=== PATIENT | male | born 1950 | race African-American/Black ===

== ENCOUNTER → 2016-10-01 | Outpatient (CLI) | payer MEDICARE, OTHER ==
[2016-10-01 10:24] LABS: ALBUMIN 3.7 GM/DL (3.2-5.2); ANION GAP 5 MEQ/L (8-16); BLOOD UREA NITROGEN 15 MG/DL (7-18); CALCIUM LEVEL 8.4 MG/DL (8.8-10.2); CARBON DIOXIDE LEVEL 30 MEQ/L (21-32); CHLORIDE LEVEL 106 MEQ/L (98-107); CHOLESTEROL LEVEL 182 MG/DL (<200); CREATININE FOR GFR 1.38 MG/DL (0.70-1.30); GLOMERULAR FILTRATION RATE > 60.0 (>49); GLUCOSE, FASTING 105 MG/DL (80-110); MAGNESIUM LEVEL 2.2 MG/DL (1.8-2.4); PHOSPHORUS LEVEL 3.2 MG/DL (2.5-4.9); SODIUM LEVEL 141 MEQ/L (136-145); TRIGLYCERIDES LEVEL 69 MG/DL (<150)
== END ==
LOC: M LAB 09:01
PROVIDERS: ATTEND Internal Medicine
DX: N18.3 Chronic kidney disease, stage 3 (moderate) (principal); E78.5 Hyperlipidemia, unspecified; I12.9 Hypertensive chronic kidney disease with stage 1 through stage 4 chronic kidney disease, or unspecified chronic kidney disease

== ENCOUNTER → 2016-10-13 | Outpatient (REF) | payer MEDICARE ==
[2016-10-13 16:26] LABS: MEAN CORPUSCULAR HEMOGLOBIN 31.6 pg (27.0-33.0); MEAN CORPUSCULAR HGB CONC 32.5 g/dl (32.0-36.5); MEAN CORPUSCULAR VOLUME 97.2 fl (80.0-96.0); RED CELL DISTRIBUTION WIDTH 11.6 % (11.5-14.5); WHITE BLOOD COUNT 5.8 K/mm3 (4.0-10.0)
[2016-10-13 16:30] LABS: ALBUMIN/GLOBULIN RATIO 1.21 (1.00-1.93); ALKALINE PHOSPHATASE 80 U/L (45-117); ALT/SGPT 25 U/L (12-78); ANION GAP 7 MEQ/L (8-16); AST/SGOT 20 U/L (15-37); BILIRUBIN,TOTAL 0.4 MG/DL (0.2-1.0); BLOOD UREA NITROGEN 17 MG/DL (7-18); CALCIUM LEVEL 8.7 MG/DL (8.8-10.2); CARBON DIOXIDE LEVEL 29 MEQ/L (21-32); CHLORIDE LEVEL 104 MEQ/L (98-107); CREATININE FOR GFR 1.46 MG/DL (0.70-1.30); GLOMERULAR FILTRATION RATE > 60.0 (>49); GLUCOSE, FASTING 84 MG/DL (80-110); POTASSIUM SERUM 4.5 MEQ/L (3.5-5.1); SODIUM LEVEL 140 MEQ/L (136-145); TOTAL PROTEIN 7.3 GM/DL (6.4-8.2)
== END ==
LOC: M SFHCPLAZ 14:19
PROVIDERS: ATTEND Internal Medicine
DX: R31.29 Other microscopic hematuria (principal); I10 Essential (primary) hypertension
CPT/HCPCS: 36415; 80053; 81001; 85027; 90732; G0009

== ENCOUNTER → 2016-10-25 | Outpatient (CLI) | payer MEDICARE ==
[~2016-10-25] MED LIST: AMLO5TAB2 PO; CHLO25TA PO
[2016-10-25 13:40] LABS: ANION GAP 6 MEQ/L (8-16); BLOOD UREA NITROGEN 18 MG/DL (7-18); CALCIUM LEVEL 8.8 MG/DL (8.8-10.2); CARBON DIOXIDE LEVEL 31 MEQ/L (21-32); CHLORIDE LEVEL 102 MEQ/L (98-107); CREATININE FOR GFR 1.37 MG/DL (0.70-1.30); GLOMERULAR FILTRATION RATE > 60.0 (>49); GLUCOSE, FASTING 111 MG/DL (80-110); POTASSIUM SERUM 4.1 MEQ/L (3.5-5.1); SODIUM LEVEL 139 MEQ/L (136-145)
== END ==
LOC: M SMT 11:41
PROVIDERS: ATTEND Nurse Practitioner Women's Health
DX: R31.29 Other microscopic hematuria (principal); Z12.5 Encounter for screening for malignant neoplasm of prostate
CPT/HCPCS: 36415; 80048; 81001; 87086; 88108; G0103; G0463

== ENCOUNTER → 2016-11-11 | Outpatient (CLI) | payer MEDICARE ==
[~2016-11-11] MED LIST changes: +ISOVUE-370 76% 100ML VIAL (Q9967) As Ordered ONE
--- NOTE | 2016-11-12 09:00 | REP ---
Clinical: Microscopic hematuria. Technique: Axial precontrast, contrast enhanced, and delayed images of the abdomen and pelvis using 100 ml Isovue 370 intravenous contrast material with coronal and sagittal re-formations. Findings: Evaluation of the urinary tract system demonstrates normal kidneys, ureters, and bladder in all phases of enhancement. Specifically, there is no perinephric stranding, hydroureteronephrosis, intrarenal or obstructing ureteral calculi a no renal cystic or mass lesions are identified. Delayed images demonstrate normal symmetric appearance to the ureters and bladder. Liver, spleen, pancreas, and bilateral adrenal glands are normal. The patient is status post cholecystectomy. The enteric system is unremarkable. Pelvis demonstrates normal bladder and mildly enlarged prostate gland measuring 4.1 cm transverse diameter. No pelvic fluid or ascites. No adenopathy. No free air. Atherosclerotic changes of the aorta and branch vessels noted without aneurysm. Musculoskeletal structures are intact without focal osseous abnormality. Impression: 1. Normal urinary tract system. 2. Mildly prominent prostate gland. 3. No further acute intra-abdominal or pelvic pathology appreciated. Signed by Ralph Henry MD 11/12/2016 08:52 A
== END ==
LOC: M RAD 10:32
PROVIDERS: ATTEND Nurse Practitioner Women's Health
DX: R31.29 Other microscopic hematuria (principal)
CPT/HCPCS: 74178; Q9967

== ENCOUNTER → 2016-11-16 | Outpatient (CLI) | payer MEDICARE ==
[~2016-11-16] MED LIST changes: +AMLO10TA PO; +CIPR500T3 PO; -ISOVUE-370 76% 100ML VIAL (Q9967) As Ordered ONE; +TYLE650T35 PO
--- NOTE | 2016-11-17 05:16 | REP ---
Clinical: Preoperative assessment . Comparison: None . Technique: PA and lateral. Findings: The mediastinum and cardiac silhouette are normal. Airway is patent and midline. The lung hamlin are clear and without acute consolidation, effusion, or pneumothorax. The skeletal structures are intact and normal. Impression: 1. No acute cardiopulmonary process. Signed by Ralph Henry MD 11/17/2016 05:08 A
== END ==
LOC: M RAD 16:23
PROVIDERS: ATTEND Family Medicine
DX: Z01.818 Encounter for other preprocedural examination (principal); N32.89 Other specified disorders of bladder; F17.200 Nicotine dependence, unspecified, uncomplicated; Z79.899 Other long term (current) drug therapy
CPT/HCPCS: 36415; 71020; 80048; 85025; 87086; G0463

== ENCOUNTER → 2016-11-16 | Outpatient (REF) | payer MEDICARE ==
[~2016-11-16] MED LIST changes: -AMLO10TA PO
[2016-11-16 18:13] LABS: BASO % 0.6 % (0.0-1.0); EOS # 0.1 K/mm3 (0.0-0.50); EOS % 1.2 % (0.0-3.0); LARGE UNSTAINED CELL # 0.1 K/mm3 (0.0-0.4); LARGE UNSTAINED CELL % 1.9 % (0.0-4.0); LYMPH # 1.9 K/mm3 (1.5-4.5); LYMPH % 32.4 % (24.0-44.0); MEAN CORPUSCULAR HEMOGLOBIN 31.9 pg (27.0-33.0); MEAN CORPUSCULAR HGB CONC 32.8 g/dl (32.0-36.5); MEAN CORPUSCULAR VOLUME 97.2 fl (80.0-96.0); MONO # 0.4 K/mm3 (0.0-0.8); MONO % 6.9 % (0.0-5.0); NEUTROPHILS # 3.4 K/mm3 (1.8-7.7); PLATELET COUNT, AUTOMATED 178 k/mm3 (150-450); RED CELL DISTRIBUTION WIDTH 11.8 % (11.5-14.5)
[2016-11-16 19:11] LABS: ANION GAP 4 MEQ/L (8-16); BLOOD UREA NITROGEN 15 MG/DL (7-18); CALCIUM LEVEL 8.4 MG/DL (8.8-10.2); CARBON DIOXIDE LEVEL 30 MEQ/L (21-32); CHLORIDE LEVEL 107 MEQ/L (98-107); CREATININE FOR GFR 1.21 MG/DL (0.70-1.30); GLOMERULAR FILTRATION RATE > 60.0 (>49); GLUCOSE, FASTING 62 MG/DL (80-110); POTASSIUM SERUM 3.9 MEQ/L (3.5-5.1); SODIUM LEVEL 141 MEQ/L (136-145)
== END ==
LOC: M SFHCPLAZ 15:08
PROVIDERS: ATTEND Family Medicine
DX: Z01.818 Encounter for other preprocedural examination (principal); N32.9 Bladder disorder, unspecified

== ENCOUNTER → 2016-11-24 | Day surgery (SDC) | payer MEDICARE ==
[~2016-11-24] VITALS: Ht 175.3 cm; Wt 71.2 kg
[~2016-11-24] MED LIST changes: +ACETAMINOPHEN TAB 650MG DOSE (2X325MG) PO SCH; +AMLO10TA PO; +CIPROFLOXACIN 500 MG TAB PO SCH; +GLYCOPYRROLATE INJ 0.2 MG/ML 2 ML VIAL As Ordered ONE; +LIDOCAINE 1% MDV 20ML VIAL SQ ONE; +LIDOCAINE 2% INJ 100 MG/5 ML SDV (FOR ANES.) As Ordered ONE; +LR 1,000 ML IV ONE; +LR 1,000 ML IV SCH; +MIDAZOLAM INJ 2 MG/2 ML VIAL (J2250) As Ordered ONE; +NEOSTIGMINE 1MG/ML 5 ML SYRINGE (J2710) As Ordered ONE; +ONDANSETRON 4MG/2ML VIAL (J2405) As Ordered ONE; +ONDANSETRON 4MG/2ML VIAL (J2405) IV PRN; +PROPOFOL 200 MG/20 ML VIAL As Ordered ONE; +dexameTHASONE 4 MG/ML 1ML VIAL (J1100) As Ordered ONE; +fentaNYL 100 MCG/2 ML INJECTION (J3010) As Ordered ONE
[2016-11-24 07:51] LABS: INR 0.95
[2016-11-24] MEDS: fentaNYL 100 MCG/2 ML INJECTION (J3010) IV PRN ×4 (10:35→10:50)
[2016-11-24] MEDS: MORPHINE 2 MG/ML 1ML SYRINGE IV PRN ×4 (10:55→11:10)
[2016-11-24 11:50] VITALS: BP 165/93
--- NOTE | 2016-11-25 21:15 | RO ---
DATE OF PROCEDURE: 11/24/2016 PREOPERATIVE DIAGNOSIS: Right lateral wall bladder tumor. POSTOPERATIVE DIAGNOSIS: Bladder tumor. FINDINGS: 2.5 cm flat lateral wall bladder tumor. SURGERY PERFORMED: Cystoscopy, transurethral resection of bladder tumor, bipolar transurethral resection of bladder tumor (TURBT). Examination under anesthesia. SURGEON: Dagoberto Farooq MD HISTORY FACULTY MEMBER: None. ANESTHESIA: General. COMPLICATIONS: None. ESTIMATED BLOOD LOSS: N/A. HISTORY OF PRESENT ILLNESS: 66-year-old male patient that had a flexible cystoscopy in the clinic that showed a 2.5 cm flat lesion erythematous in the right lateral wall. For this reason the patient has consented for cystoscopy, TURBT, plus exam under anesthesia. PROCEDURE DESCRIPTION: With the patient under general anesthesia in supine modified low lithotomy position, after prepping and draping the area of concern, which included the entire genitalia and abdomen, we started by introducing a cystoscope, #21-Kinyarwanda in diameter under videoscopic guidance with a 30 degrees lens. The fossa navicularis, penile urethra, bulbar urethra and membranous urethra were totally normal. The prostate had lateral lobes touching, no middle lobes. Both ureteral orifices were seen. The bladder had no tumors in the dome or in the left lateral wall. On the right lateral wall near the ureteral orifice, there was a flat lesion about 2.5 cm in diameter with mild papillary component. We grabbed the resectoscope, under normal saline, bipolar resection. We resected this area and with a Ellik elevator we extracted the chips of tumor and sent it for permanent pathology analysis. We then fulgurated the base and extracted the resectoscope and placed a #20-Kinyarwanda Arreaga catheter and inflated it up to 10 mL. PLAN: The patient will be discharged home with a Arreaga catheter set to gravity. He will come back in two days for removal of Arreaga catheter and voiding trial.
== END | disposition home or self-care (01) ==
LOC: M SDC 07:20
PROVIDERS: ATTEND Urology
DX: N30.90 Cystitis, unspecified without hematuria (principal); I10 Essential (primary) hypertension; F17.210 Nicotine dependence, cigarettes, uncomplicated; Z79.899 Other long term (current) drug therapy
CPT/HCPCS: 36415; 52235; 85610; 86850; 86900; 86901; 88305; J0690; J1100; J2250; J2405; J2710; J3010

== ENCOUNTER 2016-11-27 14:29 | Emergency (ER) | payer MEDICARE, MEDICAID ==
[~2016-11-27] VITALS: Ht 172.7 cm; Wt 69.6 kg
[~2016-11-27 14:29] MED LIST changes: -ACETAMINOPHEN TAB 650MG DOSE (2X325MG) PO SCH; -AMLO10TA PO; -CIPROFLOXACIN 500 MG TAB PO SCH; -GLYCOPYRROLATE INJ 0.2 MG/ML 2 ML VIAL As Ordered ONE; -LIDOCAINE 1% MDV 20ML VIAL SQ ONE; -LIDOCAINE 2% INJ 100 MG/5 ML SDV (FOR ANES.) As Ordered ONE; -LR 1,000 ML IV ONE; -LR 1,000 ML IV SCH; -MIDAZOLAM INJ 2 MG/2 ML VIAL (J2250) As Ordered ONE; -NEOSTIGMINE 1MG/ML 5 ML SYRINGE (J2710) As Ordered ONE; -ONDANSETRON 4MG/2ML VIAL (J2405) As Ordered ONE; -ONDANSETRON 4MG/2ML VIAL (J2405) IV PRN; -PROPOFOL 200 MG/20 ML VIAL As Ordered ONE; -dexameTHASONE 4 MG/ML 1ML VIAL (J1100) As Ordered ONE; -fentaNYL 100 MCG/2 ML INJECTION (J3010) As Ordered ONE
[2016-11-27] MEDS ORDERED: AMLO10TA PO (14:47)
[2016-11-27 16:28] LABS: BASO % 0.7 % (0.0-1.0); EOS # 0.1 K/mm3 (0.0-0.50); EOS % 1.8 % (0.0-3.0); LARGE UNSTAINED CELL # 0.1 K/mm3 (0.0-0.4); LARGE UNSTAINED CELL % 1.3 % (0.0-4.0); LYMPH # 1.9 K/mm3 (1.5-4.5); LYMPH % 26.3 % (24.0-44.0); MEAN CORPUSCULAR HEMOGLOBIN 32.2 pg (27.0-33.0); MEAN CORPUSCULAR HGB CONC 33.4 g/dl (32.0-36.5); MEAN CORPUSCULAR VOLUME 96.3 fl (80.0-96.0); MONO # 0.5 K/mm3 (0.0-0.8); MONO % 7.2 % (0.0-5.0); NEUTROPHILS # 4.4 K/mm3 (1.8-7.7); NEUTROPHILS % 62.7 % (36.0-66.0); PLATELET COUNT, AUTOMATED 158 k/mm3 (150-450); RED CELL DISTRIBUTION WIDTH 12.1 % (11.5-14.5)
[2016-11-27] MEDS ORDERED: MORPHINE 4 MG/ML 1ML SYRINGE IV ONE (16:30)
[2016-11-27] MEDS ORDERED: ONDANSETRON 4MG/2ML VIAL (J2405) IV ONE (16:30)
[2016-11-27] MEDS ORDERED: NS 500 ML IV ONE (16:30)
[2016-11-27 16:36] LABS: INR 0.97
[2016-11-27 16:49] LABS: ALBUMIN 3.9 GM/DL (3.2-5.2); ALKALINE PHOSPHATASE 78 U/L (45-117); ALT/SGPT 57 U/L (12-78); ANION GAP 5 MEQ/L (8-16); AST/SGOT 45 U/L (15-37); BILIRUBIN,DIRECT 0.2 MG/DL (0.0-0.2); BILIRUBIN,TOTAL 0.5 MG/DL (0.2-1.0); BLOOD UREA NITROGEN 14 MG/DL (7-18); CALCIUM LEVEL 8.9 MG/DL (8.8-10.2); CARBON DIOXIDE LEVEL 30 MEQ/L (21-32); CHLORIDE LEVEL 103 MEQ/L (98-107); CREATININE FOR GFR 1.48 MG/DL (0.70-1.30); GLOMERULAR FILTRATION RATE > 60.0 (>49); GLUCOSE, FASTING 74 MG/DL (80-110); POTASSIUM SERUM 3.9 MEQ/L (3.5-5.1); SODIUM LEVEL 138 MEQ/L (136-145); TOTAL PROTEIN 6.9 GM/DL (6.4-8.2)
[2016-11-27 18:00] VITALS: BP 145/85
--- NOTE | 2016-11-28 08:20 | REP ---
CT study abdomen and pelvis without contrast: History: Right flank pain. Bladder mass resected November 24, 2016. Comparison CT study November 11, 2016. CT findings: Digital shovel logger view shows a normal bowel gas pattern. The lung bases remain clear. There is no evidence of pleural effusion. The liver and spleen are normal in size, homogeneous in texture. There are clips in the gallbladder fossa as before. No adrenal lesion is seen. There is no evidence of hydronephrosis on either side. No renal calculus or mass is seen. There are scattered calcifications in the pancreas as before, question chronic pancreatitis. Vascular calcification is noted. Normal caliber aorta is seen. Normal appendix is noted. Arreaga catheter seen the urinary bladder. There is mild diverticulosis of the sigmoid colon. No evidence of free intraperitoneal air or abnormal fluid collection seen. Impression: Arreaga catheter in place. Mild left colonic diverticulosis. Postcholecystectomy. No acute abdominal or pelvic abnormality. Signed by Kameron Giron MD 11/28/2016 09:00 A
== END 2016-11-27 18:03 | disposition home or self-care (01) ==
LOC: M ED 15:44
DX: R31.9 Hematuria, unspecified (principal); Z87.448 Personal history of other diseases of urinary system; I10 Essential (primary) hypertension; F17.200 Nicotine dependence, unspecified, uncomplicated; Z96.0 Presence of urogenital implants; K57.30 Diverticulosis of large intestine without perforation or abscess without bleeding; Z79.899 Other long term (current) drug therapy
CPT/HCPCS: 36415; 74176; 80048; 80076; 81001; 83690; 85025; 85610; 85730; 86850; 86900; 86901; 87086; 96374; 96375; 99283; J2405

== ENCOUNTER → 2016-12-02 | Outpatient (REF) | payer MEDICARE ==
[~2016-12-02] MED LIST changes: +AMLO10TA PO
== END ==
LOC: M LABSMT 10:27
PROVIDERS: ATTEND Nurse Practitioner Women's Health
DX: N30.80 Other cystitis without hematuria (principal)

== ENCOUNTER → 2017-07-13 | Outpatient (REF) | payer MEDICARE ==
[2017-07-13 18:48] LABS: APPEARANCE, URINE CLEAR (CLEAR); BACTERIA, URINE AUTO NEGATIVE (NEGATIVE); BILIRUBIN, URINE AUTO NEGATIVE (NEGATIVE); BLOOD, URINE BLOOD 1+ (NEGATIVE); COLOR, URINE YELLOW (YELLOW); GLUCOSE, URINE (UA) AUTO NEGATIVE (NEGATIVE); KETONE, URINE AUTO NEGATIVE (NEGATIVE); LEUKOCYTE ESTERASE, URINE AUTO NEGATIVE (NEGATIVE); MUCUS, URINE SMALL (NEGATIVE); NITRITE, URINE AUTO NEGATIVE (NEGATIVE); PROTEIN, URINE AUTO NEGATIVE (NEGATIVE); RBC, URINE AUTO 4 /HPF (0-3); SPECIFIC GRAVITY URINE AUTO 1.011 (1.002-1.035); SQUAMOUS EPITHELIAL CELL UR AU 0 /HPF (0-6); UROBILINOGEN, URINE AUTO 0.2 mg/dL (0.0-2.0); WBC, URINE AUTO 1 /HPF (0-3)
== END ==
LOC: M SMT 17:07
DX: N30.80 Other cystitis without hematuria (principal)

== ENCOUNTER → 2017-07-13 | Outpatient (CLI) | payer MEDICARE ==
[2017-07-13 20:43] LABS: PSA SCREENING 0.56 NG/ML (< 4.0)
== END ==
LOC: M SMT 14:36
DX: N30.80 Other cystitis without hematuria (principal); Z12.5 Encounter for screening for malignant neoplasm of prostate
CPT/HCPCS: G0103

== ENCOUNTER → 2018-01-02 | Outpatient (REF) | payer MEDICARE, MEDICAID | LOC: M SMT 17:03 | DX: N30.80 Other cystitis without hematuria (principal) | CPT/HCPCS: 88108 ==

== ENCOUNTER → 2018-01-13 | Outpatient (CLI) | payer MEDICARE, MEDICAID ==
[2018-01-13 12:56] LABS: ERYTHROCYTE SEDIMENTATION RATE 16 mm/hr (0-20)
[2018-01-13 13:10] LABS: VITAMIN B12 LEVEL 535 PG/ML (247-911)
[2018-01-13 13:11] LABS: FOLATE 13.2 NG/ML (>5.4)
[2018-01-13 13:19] LABS: FREE THYROXINE INDEX 3.1 % (1.4-3.8); RHEUMATOID FACTOR QUANT < 10.0 IU/ML (<15.0); T UPTAKE 36 % (33-40); THYROXINE (T4) 8.5 UG/DL (4.5-12.0); TOTAL PROTEIN 7.5 GM/DL (6.4-8.2)
[2018-01-13 13:32] LABS: ESTIMATED AVERAGE GLUCOSE 82 MG/DL (60-110); HEMOGLOBIN A1c 4.5 %
[2018-01-14 14:10] LABS: ANTINUCLEAR ANTIBODIES DIRECT Negative (Negative)
[2018-01-17 00:07] LABS: VITAMIN E(ALPHA TOCOPHEROL) 9.4 mg/L (9.0-29.0); VITAMIN E(GAMMA TOCOPHEROL) 0.7 mg/L (0.5-4.9)
== END ==
LOC: M LAB 11:20
DX: E07.9 Disorder of thyroid, unspecified (principal); E11.9 Type 2 diabetes mellitus without complications

== ENCOUNTER → 2018-01-13 | Outpatient (CLI) | payer MEDICARE, MEDICAID | LOC: M RAD 11:24 | DX: M50.321 Other cervical disc degeneration at C4-C5 level (principal); M50.322 Other cervical disc degeneration at C5-C6 level; M25.78 Osteophyte, vertebrae; M47.892 Other spondylosis, cervical region; M47.896 Other spondylosis, lumbar region; E07.9 Disorder of thyroid, unspecified; E11.9 Type 2 diabetes mellitus without complications | CPT/HCPCS: 84439 ==

== ENCOUNTER → 2018-02-20 | Outpatient (CLI) | payer MEDICARE, MEDICAID | LOC: M RAD 07:50 | DX: B18.2 Chronic viral hepatitis C (principal) | CPT/HCPCS: 76705 ==

== ENCOUNTER → 2018-05-01 | Outpatient (CLI) | payer MEDICARE, MEDICAID ==
[2018-05-01 13:51] LABS: BASO % 0.7 % (0.0-1.0); EOS % 0.7 % (0.0-3.0); HEMOGLOBIN 13.6 g/dl (13.5-17.5); IMMATURE GRANULOCYTE % 0.2 % (0-3.0); LYMPH # 1.6 10^3/uL (1.5-4.5); LYMPH % 28.8 % (24.0-44.0); MEAN CORPUSCULAR HEMOGLOBIN 31.5 pg (27.0-33.0); MEAN CORPUSCULAR HGB CONC 32.4 g/dl (32.0-36.5); MEAN CORPUSCULAR VOLUME 97.2 fl (80.0-96.0); MONO # 0.4 10^3/uL (0.0-0.8); MONO % 7.5 % (0.0-5.0); NEUTROPHILS # 3.5 10^3/uL (1.8-7.7); NEUTROPHILS % 62.1 % (36.0-66.0); PLATELET COUNT, AUTOMATED 184 10^3/uL (150-450); RED BLOOD COUNT 4.32 10^6/uL (4.30-6.10); RED CELL DISTRIBUTION WIDTH 11.9 % (11.5-14.5); WHITE BLOOD COUNT 5.6 10^3/uL (4.0-10.0)
[2018-05-01 14:12] LABS: ERYTHROCYTE SEDIMENTATION RATE 17 mm/hr (0-20)
[2018-05-01 14:24] LABS: ALBUMIN 3.7 GM/DL (3.2-5.2); ALBUMIN/GLOBULIN RATIO 1.06 (1.00-1.93); ALKALINE PHOSPHATASE 68 U/L (45-117); ALT/SGPT 23 U/L (12-78); ANION GAP 6 MEQ/L (8-16); AST/SGOT 20 U/L (7-37); BILIRUBIN,TOTAL 0.5 MG/DL (0.2-1.0); BLOOD UREA NITROGEN 17 MG/DL (7-18); CALCIUM LEVEL 8.6 MG/DL (8.8-10.2); CARBON DIOXIDE LEVEL 28 MEQ/L (21-32); CHLORIDE LEVEL 107 MEQ/L (98-107); CREATININE FOR GFR 1.42 MG/DL (0.70-1.30); FOLATE 12.3 NG/ML; FREE T4 0.83 NG/DL (0.76-1.46); GLOMERULAR FILTRATION RATE > 60.0 (>49); GLUCOSE, FASTING 82 MG/DL (70-100); POTASSIUM SERUM 4.1 MEQ/L (3.5-5.1); RHEUMATOID FACTOR QUANT < 10.0 IU/ML (<15.0); SODIUM LEVEL 141 MEQ/L (136-145); THYROID STIMULATING HORMONE 0.498 uIU/ML (0.358-3.740); TOTAL PROTEIN 7.2 GM/DL (6.4-8.2); VITAMIN B12 LEVEL 583 PG/ML
[2018-05-01 14:39] LABS: ESTIMATED AVERAGE GLUCOSE 91 MG/DL (60-110); HEMOGLOBIN A1c 4.8 %
[2018-05-02 13:40] LABS: ALBUMIN % 58.9 % (55.8-66.1); ALPHA-2-GLOBULINS % 12.4 % (7.1-11.8)
[2018-05-02 13:41] LABS: ALBUMIN 4.24 GM/DL (3.29-5.55); ALPHA-1-GLOBULINS 0.29 GM/DL (0.17-0.41); ALPHA-2-GLOBULINS 0.89 GM/DL (0.42-0.99); BETA-1-GLOBULINS 0.42 GM/DL (0.28-0.60); BETA-1-GLOBULINS % 5.8 % (4.7-7.2); BETA-2-GLOBULINS % 4.1 % (3.2-6.5); GAMMA GLOBULIN % 14.8 % (11.1-18.8); GAMMA GLOBULINS 1.07 GM/DL (0.65-1.58)
[2018-05-05 14:10] LABS: ANTINUCLEAR ANTIBODIES DIRECT Negative (Negative); Methylmalonic Acid 129 nmol/L (0-378); VITAMIN B1 LEVEL WHOLE BLOOD 72.3 nmol/L (66.5-200.0); VITAMIN B6,PYRIDOXAL PHOSPHATE 8.8 ug/L (5.3-46.7); VITAMIN E(ALPHA TOCOPHEROL) 9.9 mg/L (9.0-29.0)
== END ==
LOC: M LAB 12:36
DX: E11.9 Type 2 diabetes mellitus without complications (principal); R20.2 Paresthesia of skin; E07.9 Disorder of thyroid, unspecified; G62.9 Polyneuropathy, unspecified
CPT/HCPCS: 82746

== ENCOUNTER → 2018-07-07 | Outpatient (CLI) | payer MEDICARE, MEDICAID ==
[~2018-07-07] MED LIST changes: -AMLO5TAB2 PO; +AMLO5TAB6 PO
[2018-07-07 12:29] LABS: HEMOGLOBIN 12.6 g/dl (13.5-17.5); MEAN CORPUSCULAR HEMOGLOBIN 31.7 pg (27.0-33.0); MEAN CORPUSCULAR HGB CONC 33.2 g/dl (32.0-36.5); MEAN CORPUSCULAR VOLUME 95.7 fl (80.0-96.0); PLATELET COUNT, AUTOMATED 184 10^3/uL (150-450); RED BLOOD COUNT 3.97 10^6/uL (4.30-6.10); WHITE BLOOD COUNT 6.6 10^3/uL (4.0-10.0)
[2018-07-07 12:46] LABS: BLOOD UREA NITROGEN 18 MG/DL (7-18); CALCIUM LEVEL 8.5 MG/DL (8.8-10.2); CARBON DIOXIDE LEVEL 28 MEQ/L (21-32); CHLORIDE LEVEL 104 MEQ/L (98-107); CREATININE FOR GFR 1.39 MG/DL (0.70-1.30); GLOMERULAR FILTRATION RATE > 60.0 (>49); GLUCOSE, FASTING 79 MG/DL (70-100); POTASSIUM SERUM 3.4 MEQ/L (3.5-5.1); SODIUM LEVEL 140 MEQ/L (136-145)
== END ==
LOC: M LAB 11:04
PROVIDERS: ATTEND Student in an Organized Health Care Education/Training Program
DX: Z01.818 Encounter for other preprocedural examination (principal)

== ENCOUNTER 2018-07-19 06:20 | Day surgery (SDC) | payer MEDICARE, MEDICAID ==
[~2018-07-19] VITALS: Ht 175.3 cm; Wt 69.4 kg
[~2018-07-19 06:20] MED LIST changes: +LISI10TA4 PO; +TRAM50TA2 PO
[2018-07-19] MEDS ORDERED: BUPIVACAINE HCL 0.5% 10 ML VIAL As Ordered ONE (07:07)
[2018-07-19] MEDS ORDERED: LIDOCAINE 1% MDV 20ML VIAL As Ordered ONE (07:07)
[2018-07-19] MEDS ORDERED: dexameTHASONE 4 MG/ML 1ML VIAL (J1100) As Ordered ONE (07:07)
[2018-07-19] MEDS ORDERED: ONDANSETRON 4MG/2ML VIAL (J2405) As Ordered ONE (07:09)
[2018-07-19] MEDS ORDERED: PROPOFOL 200 MG/20 ML VIAL As Ordered ONE ×2 (07:09→08:25)
[2018-07-19] MEDS ORDERED: LIDOCAINE 2% INJ 100 MG/5 ML SDV (FOR ANES.) As Ordered ONE (07:09)
[2018-07-19] MEDS ORDERED: fentaNYL 100 MCG/2 ML INJECTION (J3010) As Ordered ONE (07:10)
[2018-07-19] MEDS ORDERED: MIDAZOLAM INJ 2 MG/2 ML VIAL (J2250) As Ordered ONE (07:10)
[2018-07-19] MEDS ORDERED: ePHEDrine SULFATE 25 MG/5 ML(5MG/ML) SYRINGE As Ordered ONE (08:14)
[2018-07-19] MEDS ORDERED: HYDR-3713 PO (08:58)
[2018-07-19 09:30] VITALS: BP 131/83
[2018-07-19] MEDS ORDERED: NORCO, ANEXSIA 5/325MG TABLET (HYDROcodone/ACETAMINOPHEN) PO PRN (09:30)
--- NOTE | 2018-07-20 08:16 | RO ---
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 PROCEDURE: Left foot Damion osteotomy and second hammer toe correction. SURGEON: Alfie Woo DPM PRECISION AGRICULTURE TECHNICIAN: None. ANESTHESIA: Monitored anesthesia care with preoperative injection of 3 mL of 1:1 mixture of 1% lidocaine plain and 0.5% Marcaine plain. ESTIMATED BLOOD LOSS: Minimal. MATERIALS: Arthrex DynaNite staple, #3-0 and #4-0 Vicryl, #4-0 Nylon. INJECTABLES: None. COMPLICATIONS: None. CONDITION: Stable. Isaac Guadalupe is a 68-year-old male who presents to [facility] with complaints of painful left hallux and second toe. He has had previous bunionectomy at this site. He has residual valgus deformity creating a painful corn on his second toe. He has failed conservative treatment and presents today for surgical correction. The patient's site and side were identified and marked in the preoperative holding area. Consent was reviewed and obtained. All risks, complications and alternatives to the procedure were explained to the patient in detail. All questions were answered. DESCRIPTION OF PROCEDURE: The patient was brought to the operating room and placed on the operating room table in supine position. Monitored anesthesia care was delivered by the anesthesia team. Preoperative injection of 20 mL of 1:1 mixture of 1% lidocaine plain and 0.5% Marcaine plain were injected to the left foot. The left foot was prepped and draped in a normal sterile fashion. Tourniquet was applied to the left ankle and inflated to 225 mmHg. Patient received Ancef preoperatively. A dorsal medial incision was made over the left hallux and carried through with a #15 blade. Dissection was carried until the proximal phalanx was identified. Care was taken to retract the extensor tendon. Following this, a wedge of bone was removed from the base of the proximal phalanx effectively placing the hallux in a more medial position. This was fixated with an Arthrex DynaNite staple. Site was irrigated with normal saline. A lateral release was performed at the first metatarsal phalangeal joint capsule. The medial capsule was tightened with #3-0 Vicryl, subcutaneous closure performed with #4-0 Vicryl and skin closure with #4-0 Nylon. Next attention was paid to the second toe. Dorsal incision drawn over the proximal interphalangeal joint and carried through with a #15 blade. Dissection was carried to the extensor tendon was identified. This was transected at the proximal interphalangeal joint level exposing the proximal phalanx head. The collateral ligaments were released and the proximal phalanx head was resected with sagittal saw. The site was irrigated with normal saline. The extensor tendon was repaired with #3-0 Vicryl and the skin closure with #4-0 Nylon. The callus on the hallux and second toe were debrided. Sterile dressings were applied. Tourniquet was deflated. The patient was brought to post anesthesia care unit (PACU) with vital signs stable and neurovascular status intact. He will be partial weightbearing as tolerated. He will followup in the office in two days.
== END 2018-07-19 10:50 | disposition home or self-care (01) ==
LOC: M SDC 06:20
PROVIDERS: ATTEND Podiatrist Foot & Ankle Surgery
DX: M20.12 Hallux valgus (acquired), left foot (principal); M20.42 Other hammer toe(s) (acquired), left foot; I10 Essential (primary) hypertension; M54.5 Low back pain; L84 Corns and callosities; R29.898 Other symptoms and signs involving the musculoskeletal system; D41.4 Neoplasm of uncertain behavior of bladder; Z79.899 Other long term (current) drug therapy; Z72.0 Tobacco use; Z86.19 Personal history of other infectious and parasitic diseases
CPT/HCPCS: 28285; 28298; 88300; 97116; C1713; J0690; J2250; J2405; J3010

== ENCOUNTER → 2019-09-13 | Outpatient (CLI) | payer MEDICARE, MEDICAID ==
[~2019-09-13] MED LIST changes: +HYDR-3713 PO
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
== END ==
LOC: M PAIN 10:30
PROVIDERS: ATTEND Family Medicine
DX: M50.10 Cervical disc disorder with radiculopathy, unspecified cervical region (principal); I10 Essential (primary) hypertension; Z79.891 Long term (current) use of opiate analgesic; Z79.899 Other long term (current) drug therapy

== ENCOUNTER → 2019-10-15 | Outpatient (CLI) | payer MEDICARE, MEDICAID ==
[~2019-10-15] MED LIST changes: +AUGM875T28 PO; +BACI500O21 TOP; +NEUR300C PO
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
== END ==
LOC: M PAIN 14:15
PROVIDERS: ATTEND Family Medicine
DX: M50.10 Cervical disc disorder with radiculopathy, unspecified cervical region (principal); G89.29 Other chronic pain; I10 Essential (primary) hypertension; F17.210 Nicotine dependence, cigarettes, uncomplicated; Z79.899 Other long term (current) drug therapy

== ENCOUNTER 2019-10-24 17:44 | Emergency (ER) | payer MEDICARE, MEDICAID ==
[~2019-10-24] VITALS: Ht 175.3 cm; Wt 72.3 kg
[~2019-10-24 17:44] MED LIST changes: -AUGM875T28 PO; -BACI500O21 TOP; -NEUR300C PO
[2019-10-24] MEDS ORDERED: NEUR300C PO (17:52)
[2019-10-24] MEDS ORDERED: AUGMENTIN 875 MG TAB PO ONE (18:30)
[2019-10-24] MEDS ORDERED: AUGM875T28 PO (18:36)
[2019-10-24] MEDS ORDERED: BACI500O21 TOP (18:36)
[2019-10-24 18:59] VITALS: BP 196/99
== END 2019-10-24 19:00 | disposition home or self-care (01) ==
LOC: M ED 17:44
DX: S71.131A Puncture wound without foreign body, right thigh, initial encounter (principal); W54.0XXA Bitten by dog, initial encounter; Y92.410 Unspecified street and highway as the place of occurrence of the external cause; I10 Essential (primary) hypertension; Z79.899 Other long term (current) drug therapy

== ENCOUNTER 2019-10-27 12:36 | Emergency (ER) | payer MEDICARE, MEDICAID, OTHER ==
[~2019-10-27] VITALS: Ht 175.3 cm; Wt 72.3 kg
[~2019-10-27 12:36] MED LIST changes: +AUGM875T28 PO; +BACI500O21 TOP; +NEUR300C PO
[2019-10-27] MEDS ORDERED: RABIES IMMUNE GLOBULIN 1500 INTERNATIONAL UNIT/5ML VIAL (90375) IM ONE (13:00)
[2019-10-27] MEDS ORDERED: RABIES VACCINE HUMAN 2.5 INTERNATIONAL UNITS/ML VIAL (90675) IM ONE (13:00)
[2019-10-27 13:48] VITALS: BP 188/95
== END 2019-10-27 13:50 | disposition home or self-care (01) ==
LOC: M ED 12:36
DX: S71.151A Open bite, right thigh, initial encounter (principal); W54.0XXA Bitten by dog, initial encounter; Y92.89 Other specified places as the place of occurrence of the external cause; I10 Essential (primary) hypertension; F17.210 Nicotine dependence, cigarettes, uncomplicated

== ENCOUNTER 2019-10-30 10:17 | Emergency (ER) | payer MEDICARE, MEDICAID, OTHER ==
[~2019-10-30] VITALS: Ht 175.3 cm; Wt 70.9 kg
[2019-10-30] MEDS ORDERED: RABIES VACCINE HUMAN 2.5 INTERNATIONAL UNITS/ML VIAL (90675) IM ONE (10:45)
[2019-10-30 10:58] VITALS: BP 152/98
== END 2019-10-30 10:59 | disposition home or self-care (01) ==
LOC: M ED 10:17
DX: Z20.3 Contact with and (suspected) exposure to rabies (principal); Z23 Encounter for immunization

== ENCOUNTER 2019-11-03 10:23 | Emergency (ER) | payer MEDICARE, MEDICAID, OTHER ==
[~2019-11-03] VITALS: Ht 175.3 cm; Wt 70.7 kg
[2019-11-03 10:23] VITALS: BP 141/105
[2019-11-03] MEDS ORDERED: RABIES VACCINE HUMAN 2.5 INTERNATIONAL UNITS/ML VIAL (90675) IM ONE (10:45)
== END 2019-11-03 11:00 | disposition home or self-care (01) ==
LOC: M ED 10:23
DX: S71.151A Open bite, right thigh, initial encounter (principal); W54.0XXA Bitten by dog, initial encounter; Y92.89 Other specified places as the place of occurrence of the external cause

== ENCOUNTER 2019-11-10 10:37 | Emergency (ER) | payer MEDICARE, MEDICAID, OTHER ==
[~2019-11-10] VITALS: Ht 175.3 cm; Wt 70.6 kg
[2019-11-10] MEDS ORDERED: RABIES VACCINE HUMAN 2.5 INTERNATIONAL UNITS/ML VIAL (90675) IM ONE (11:15)
[2019-11-10 11:41] VITALS: BP 148/81
== END 2019-11-10 11:44 | disposition home or self-care (01) ==
LOC: M ED 10:37
DX: S71.151D Open bite, right thigh, subsequent encounter (principal); W54.0XXA Bitten by dog, initial encounter; Y92.89 Other specified places as the place of occurrence of the external cause

== ENCOUNTER 2019-12-07 05:56 | Emergency (ER) | payer MEDICARE, MEDICAID ==
[~2019-12-07] VITALS: Ht 175.3 cm; Wt 70.9 kg
--- NOTE | 2019-12-07 07:11 | ECGEPIP ---
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
[2019-12-07 08:05] LABS: BASO % 0.6 % (0.0-1.0); EOS # 0.1 10^3/uL (0.0-0.5); EOS % 1.4 % (0.0-3.0); HEMATOCRIT 36.3 % (42.0-52.0); LYMPH # 1.9 10^3/uL (1.5-5.0); LYMPH % 25.7 % (24.0-44.0); MEAN CORPUSCULAR HEMOGLOBIN 31.7 pg (27.0-33.0); MEAN CORPUSCULAR HGB CONC 33.1 g/dl (32.0-36.5); MONO # 0.7 10^3/uL (0.0-0.8); MONO % 9.2 % (0.0-5.0); NEUTROPHILS # 4.6 10^3/uL (1.5-8.5); NEUTROPHILS % 62.7 % (36.0-66.0); PLATELET COUNT, AUTOMATED 184 10^3/uL (150-450); RED BLOOD COUNT 3.78 10^6/uL (4.30-6.10); WHITE BLOOD COUNT 7.3 10^3/uL (4.0-10.0)
[2019-12-07 08:18] LABS: ALBUMIN 3.4 GM/DL (3.2-5.2); BILIRUBIN,DIRECT 0.2 MG/DL (0.0-0.2); BILIRUBIN,TOTAL 0.5 MG/DL (0.2-1.0); TOTAL PROTEIN 6.8 GM/DL (6.4-8.2)
--- NOTE | 2019-12-07 08:20 | REP ---
KUB: Single view. History: Abdomen pain. Findings: Monitoring electrodes are seen. There are clips in right upper quadrant post cholecystectomy. Bowel gas pattern is unremarkable with air and some stool in a nondistended colon. No larger small bowel dilation is seen. Flank stripes are intact. Psoas margins are partially obscured but appear symmetric. Impression: Unremarkable bowel gas pattern. Right upper quadrant clips. Electronically Signed by Kameron Giron MD 12/07/2019 08:10 A
[2019-12-07] MEDS ORDERED: MORPHINE 4 MG/ML 1ML VIAL/SYRINGE (J2270) IV ONE (09:00)
[2019-12-07] MEDS ORDERED: NS 1,000 ML IV ONE (09:00)
[2019-12-07] MEDS ORDERED: ONDANSETRON 4MG/2ML VIAL IV ONE (09:00)
[2019-12-07] MEDS ORDERED: NORC1TAB7 PO (09:11)
[2019-12-07 10:30] VITALS: BP 179/104
== END 2019-12-07 10:54 | disposition home or self-care (01) ==
LOC: M ED 05:56
DX: K85.90 Acute pancreatitis without necrosis or infection, unspecified (principal); B18.2 Chronic viral hepatitis C; I10 Essential (primary) hypertension; F17.200 Nicotine dependence, unspecified, uncomplicated; Z79.891 Long term (current) use of opiate analgesic; Z79.899 Other long term (current) drug therapy
CPT/HCPCS: 74018; 80047; 80076; 83605; 83690; 84484; 85025; 93005; 93041; 96361; 96374; 99285; J2270; J2405

== ENCOUNTER → 2019-12-18 | Outpatient (CLI) | payer MEDICARE, MEDICAID ==
[~2019-12-18] MED LIST changes: +NORC1TAB7 PO
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
== END ==
LOC: M PAIN 10:30
PROVIDERS: ATTEND Family Medicine
DX: M54.41 Lumbago with sciatica, right side (principal)

== ENCOUNTER → 2020-01-18 | Outpatient (CLI) | payer MEDICARE, MEDICAID ==
[~2020-01-18] MED LIST changes: +ACET650T61 PO; +AMLO1TAB24 PO; -AMLO5TAB6 PO; -TYLE650T35 PO
== END ==
LOC: M PAIN 09:30
PROVIDERS: ATTEND Family Medicine
DX: M50.10 Cervical disc disorder with radiculopathy, unspecified cervical region (principal); M54.41 Lumbago with sciatica, right side

== ENCOUNTER → 2020-03-19 | Outpatient (CLI) | payer MEDICARE, MEDICAID ==
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
== END ==
LOC: M PAIN 11:30
PROVIDERS: ATTEND Family Medicine
DX: M50.10 Cervical disc disorder with radiculopathy, unspecified cervical region (principal); I12.9 Hypertensive chronic kidney disease with stage 1 through stage 4 chronic kidney disease, or unspecified chronic kidney disease; N18.30 Chronic kidney disease, stage 3 unspecified; F17.210 Nicotine dependence, cigarettes, uncomplicated; Z79.891 Long term (current) use of opiate analgesic; Z79.899 Other long term (current) drug therapy

== ENCOUNTER → 2020-05-19 | Outpatient (CLI) | payer MEDICARE, MEDICAID ==
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
== END ==
LOC: M PAIN 11:30
PROVIDERS: ATTEND Family Medicine
DX: M50.10 Cervical disc disorder with radiculopathy, unspecified cervical region (principal); I12.9 Hypertensive chronic kidney disease with stage 1 through stage 4 chronic kidney disease, or unspecified chronic kidney disease; N18.30 Chronic kidney disease, stage 3 unspecified; F17.210 Nicotine dependence, cigarettes, uncomplicated; Z79.891 Long term (current) use of opiate analgesic; Z79.899 Other long term (current) drug therapy

== ENCOUNTER → 2020-06-03 | Outpatient (CLI) | payer SELFPAY | LOC: M LABSMTC 10:03 | PROVIDERS: ATTEND Pediatrics | DX: Z20.828 Contact with and (suspected) exposure to other viral communicable diseases (principal) ==

== ENCOUNTER 2020-06-11 18:44 | Emergency (ER) | payer MEDICARE, MEDICAID ==
[~2020-06-11] VITALS: Ht 175.3 cm; Wt 65.9 kg
[~2020-06-11 18:44] MED LIST changes: +LISI10TA22 PO; -LISI10TA4 PO
[2020-06-11 20:03] LABS: BASO % 0.3 % (0.0-1.0); HEMATOCRIT 39.8 % (42.0-52.0); HEMOGLOBIN 13.1 g/dl (13.5-17.5); LYMPH % 12.8 % (24.0-44.0); MEAN CORPUSCULAR HGB CONC 32.9 g/dl (32.0-36.5); MEAN CORPUSCULAR VOLUME 94.1 fl (80.0-96.0); MONO # 0.4 10^3/uL (0.0-0.8); MONO % 5.4 % (0.0-5.0); NEUTROPHILS # 6.1 10^3/uL (1.5-8.5); NEUTROPHILS % 81.2 % (36.0-66.0); PLATELET COUNT, AUTOMATED 217 10^3/uL (150-450); RED BLOOD COUNT 4.23 10^6/uL (4.30-6.10); WHITE BLOOD COUNT 7.5 10^3/uL (4.0-10.0)
[2020-06-11] MEDS ORDERED: PANTOPRAZOLE 40MG VIAL (C9113 PER 1) IV ONE (20:15)
[2020-06-11] MEDS ORDERED: NS 1,000 ML IV ONE (20:15)
[2020-06-11] MEDS ORDERED: KETOROLAC 30 MG/ML 1ML VIAL IV ONE (20:15)
[2020-06-11] MEDS ORDERED: ONDANSETRON 4MG/2ML VIAL IV ONE (20:15)
--- NOTE | 2020-06-11 20:45 | REPVR ---
PROCEDURE INFORMATION: Exam: CT Abdomen And Pelvis Without Contrast Exam date and time: 06/11/2020 8:20 PM Age: 70 years old Clinical indication: Abdominal pain; Additional info: Abd pain TECHNIQUE: Imaging protocol: Computed tomography of the abdomen and pelvis without contrast. Radiation optimization: All CT scans at this facility use at least one of these dose optimization techniques: automated exposure control; mA and/or kV adjustment per patient size (includes targeted exams where dose is matched to clinical indication); or iterative reconstruction. COMPARISON: CT ABD PELVIS W/O CONTRAST 11/27/2016 4:17 PM FINDINGS: Liver: Normal. No mass. Gallbladder and bile ducts: There has been a cholecystectomy. Pancreas: Stable appearance of scattered pancreatic calcifications with large coarse calcifications in the pancreatic head, findings consistent with prior pancreatitis. Spleen: Normal. No splenomegaly. Adrenal glands: There is bilateral adrenal hyperplasia. Kidneys and ureters: Normal. No hydronephrosis. Stomach and bowel: Mild diverticulosis is present in the distal colon. No diverticulitis. Appendix: No evidence of appendicitis. Intraperitoneal space: Unremarkable. No free air. No significant fluid collection. Vasculature: The aortoiliac vessels demonstrate mild atherosclerotic calcification. Lymph nodes: Unremarkable. No enlarged lymph nodes. Urinary bladder: Unremarkable as visualized. Reproductive: The prostate gland demonstrates mild hyperplasia. Bones/joints: Moderate central spinal stenosis L4-L5. Soft tissues: Small left inguinal hernia without incarceration. IMPRESSION: 1. There has been a cholecystectomy. 2. Stable appearance of scattered pancreatic calcifications with large coarse calcifications in the pancreatic head, findings consistent with prior pancreatitis. 3. There is bilateral adrenal hyperplasia. 4. Mild diverticulosis is present in the distal colon. No diverticulitis. 5. Mild prostatic hyperplasia. Electronically signed by: Zach Ferrell On 06/11/2020 20:45:34 PM
[2020-06-11 20:48] LABS: ALBUMIN 4.2 GM/DL (3.2-5.2); BILIRUBIN,DIRECT 0.3 MG/DL (0.0-0.2); BILIRUBIN,TOTAL 0.9 MG/DL (0.2-1.0); CALCIUM LEVEL 9.7 MG/DL (8.8-10.2); CREATININE FOR GFR 1.58 MG/DL (0.70-1.30); ETHYL ALCOHOL (ETHANOL) 0.005 % (0.000-0.010); GLOMERULAR FILTRATION RATE 56.2 (>42); POTASSIUM SERUM 3.9 MEQ/L (3.5-5.1); TOTAL PROTEIN 7.6 GM/DL (6.4-8.2)
[2020-06-11] MEDS ORDERED: LABETALOL 100MG/20ML VIAL IV STA ×2 (20:50→21:28)
[2020-06-11 21:28] VITALS: BP 166/77
[2020-06-11] MEDS ORDERED: LORazepam 2 MG/ML VIAL IV STA (21:28)
[2020-06-11] MEDS ORDERED: lisinopriL 40 MG TAB PO ONE (21:30)
[2020-06-11 21:40] LABS: INR 0.95; PROTHROMBIN TIME 12.9 SECONDS (12.5-14.3)
[2020-06-11 21:54] LABS: AMPHETAMINES LEVEL URINE NEGATIVE (NEGATIVE); BARBITURATES URINE NEGATIVE (NEGATIVE); BENZODIAZEPINES URINE NEGATIVE (NEGATIVE); CANNABINOIDS URINE NEGATIVE (NEGATIVE); COCAINE METABOLITE URINE NEGATIVE (NEGATIVE); METHADONE URINE NEGATIVE (NEGATIVE); OPIATES URINE POSITIVE (NEGATIVE); PHENCYCLIDINE URINE NEGATIVE (NEGATIVE)
[2020-06-11] MEDS ORDERED: ZOFR4TAB16 PO (22:28)
[2020-06-11] MEDS ORDERED: CARA1TAB6 PO (22:28)
[2020-06-11] MEDS ORDERED: CIPR-249 PO (22:30)
[2020-06-12 00:16] VITALS: BP 171/82
--- NOTE | 2020-06-12 07:45 | ED PDOC ---
Post-Departure Follow-Up radiology rpeort faxed to [facility] Rola Robledo MD Jun 12, 2020 07:44
--- NOTE | 2020-06-12 13:33 | ECGEPIP ---
[facility] - ED Test Date: 2020-06-11 Pat Name: JUAN CHRISTIE Department: Room: - Gender: Male Lead Developer: BERNIE : 1950 Requested By: KATT Nuñez Order Number: [id number] Reading MD: Rola Robledo Measurements Intervals [place] Rate: 61 P: 66 NM: 156 QRS: 54 QRSD: 97 T: 101 QT: 395 QTc: 400 Interpretive Statements SINUS RHYTHM NONSPECIFIC ST & T-WAVE ABNORMALITY SIMILAR 12/07/19 Electronically Signed on 06-12-2020 13:33:27 EST by Rola Robledo
== END 2020-06-12 00:18 | disposition home or self-care (01) ==
LOC: M ED 18:44
DX: R10.9 Unspecified abdominal pain (principal); I10 Essential (primary) hypertension; F17.200 Nicotine dependence, unspecified, uncomplicated
CPT/HCPCS: 74176; 80048; 80076; 80307; 81001; 83690; 85025; 85610; 93005; 96361; 96374; 96375; 99284; C9113; G0480; J1885; J2060; J2405

== ENCOUNTER → 2020-06-24 | Outpatient (REF) | payer MEDICARE, MEDICAID ==
[~2020-06-24] MED LIST changes: +CARA1TAB6 PO; +CIPR-249 PO; -LISI10TA22 PO; +LISI10TA4 PO; +ZOFR4TAB16 PO
[2020-06-24 13:59] LABS: APPEARANCE, URINE CLEAR (CLEAR); BACTERIA, URINE AUTO NEGATIVE (NEGATIVE); BILIRUBIN, URINE AUTO NEGATIVE (NEGATIVE); BLOOD, URINE BLOOD 2+ (NEGATIVE); COLOR, URINE YELLOW (YELLOW); GLUCOSE, URINE (UA) AUTO NEGATIVE (NEGATIVE); KETONE, URINE AUTO NEGATIVE (NEGATIVE); LEUKOCYTE ESTERASE, URINE AUTO NEGATIVE (NEGATIVE); NITRITE, URINE AUTO NEGATIVE (NEGATIVE); PROTEIN, URINE AUTO NEGATIVE (NEGATIVE); RBC, URINE AUTO 24 /HPF (0-3); SPECIFIC GRAVITY URINE AUTO 1.018 (1.002-1.035); SQUAMOUS EPITHELIAL CELL UR AU 0 /HPF (0-6); UROBILINOGEN, URINE AUTO 0.2 mg/dL (0.0-2.0); WBC, URINE AUTO 2 /HPF (0-3)
[2020-06-24 16:22] LABS: CALCIUM LEVEL 9.1 MG/DL (8.8-10.2); CHOLESTEROL RISK RATIO 2.945 (<5); CREATININE FOR GFR 1.5 MG/DL (0.70-1.30); GLOMERULAR FILTRATION RATE 59.7 (>42); POTASSIUM SERUM 4.5 MEQ/L (3.5-5.1)
[2020-06-24 16:42] LABS: HEMOGLOBIN A1c 4.8 %
== END ==
LOC: M SFHCPLAZ 10:15
PROVIDERS: ATTEND Family Medicine
DX: E78.5 Hyperlipidemia, unspecified (principal); R31.9 Hematuria, unspecified; I10 Essential (primary) hypertension; F17.200 Nicotine dependence, unspecified, uncomplicated; Z79.899 Other long term (current) drug therapy

== ENCOUNTER → 2020-07-30 | Outpatient (REF) | payer MEDICARE, MEDICAID ==
[~2020-07-30] MED LIST changes: +LISI10TA22 PO; -LISI10TA4 PO
== END ==
LOC: M SFHCPLAZ 09:00
PROVIDERS: ATTEND Family Medicine
DX: I10 Essential (primary) hypertension (principal)

== ENCOUNTER → 2020-07-30 | Outpatient (REF) | payer MEDICARE, MEDICAID ==
[2020-07-30 17:51] LABS: APPEARANCE, URINE CLEAR (CLEAR); BACTERIA, URINE AUTO NEGATIVE (NEGATIVE); BILIRUBIN, URINE AUTO NEGATIVE (NEGATIVE); BLOOD, URINE BLOOD 2+ (NEGATIVE); COLOR, URINE YELLOW (YELLOW); GLUCOSE, URINE (UA) AUTO NEGATIVE (NEGATIVE); KETONE, URINE AUTO NEGATIVE (NEGATIVE); LEUKOCYTE ESTERASE, URINE AUTO NEGATIVE (NEGATIVE); NITRITE, URINE AUTO NEGATIVE (NEGATIVE); PROTEIN, URINE AUTO NEGATIVE (NEGATIVE); RBC, URINE AUTO 20 /HPF (0-3); SPECIFIC GRAVITY URINE AUTO 1.011 (1.002-1.035); SQUAMOUS EPITHELIAL CELL UR AU 0 /HPF (0-6); UROBILINOGEN, URINE AUTO 0.2 mg/dL (0.0-2.0); WBC, URINE AUTO 1 /HPF (0-3)
== END ==
LOC: M SMT 16:51
PROVIDERS: ATTEND Nurse Practitioner Women's Health
DX: N30.80 Other cystitis without hematuria (principal)
CPT/HCPCS: 81001; 87086; G0463

== ENCOUNTER → 2020-08-18 | Outpatient (CLI) | payer MEDICARE, MEDICAID ==
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
== END ==
LOC: M PAIN 10:30
PROVIDERS: ATTEND Family Medicine
DX: M50.10 Cervical disc disorder with radiculopathy, unspecified cervical region (principal); G89.29 Other chronic pain; F17.210 Nicotine dependence, cigarettes, uncomplicated; Z79.899 Other long term (current) drug therapy

== ENCOUNTER → 2020-09-26 | Outpatient (REF) | payer MEDICARE, MEDICAID | LOC: M SFHCPLAZ 10:52 | PROVIDERS: ATTEND Family Medicine | DX: N18.31 Chronic kidney disease, stage 3a (principal) ==

== ENCOUNTER → 2020-11-18 | Outpatient (CLI) | payer MEDICARE, MEDICAID ==
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
== END ==
LOC: M PAIN 10:30
PROVIDERS: ATTEND Family Medicine
DX: M50.10 Cervical disc disorder with radiculopathy, unspecified cervical region (principal); G89.29 Other chronic pain; F17.210 Nicotine dependence, cigarettes, uncomplicated; Z86.14 Personal history of Methicillin resistant Staphylococcus aureus infection; Z79.899 Other long term (current) drug therapy

== ENCOUNTER → 2020-11-25 | Outpatient (CLI) | payer MEDICARE, MEDICAID ==
[2020-11-25 12:06] LABS: BLOOD UREA NITROGEN 12 MG/DL (7-18); CALCIUM LEVEL 8.9 MG/DL (8.8-10.2); CARBON DIOXIDE LEVEL 31 MEQ/L (21-32); CHLORIDE LEVEL 106 MEQ/L (98-107); CREATININE FOR GFR 1.37 MG/DL (0.70-1.30); GLOMERULAR FILTRATION RATE > 60.0 (>42); GLUCOSE, FASTING 100 MG/DL (70-100); POTASSIUM SERUM 4.2 MEQ/L (3.5-5.1); SODIUM LEVEL 140 MEQ/L (136-145)
== END ==
LOC: M LAB 09:09
PROVIDERS: ATTEND Student in an Organized Health Care Education/Training Program
DX: I10 Essential (primary) hypertension (principal)

== ENCOUNTER → 2021-03-07 | Outpatient (CLI) | payer MEDICARE, MEDICAID ==
[~2021-03-07] MED LIST changes: +AMIT25TA17 PO; +DORZ2SOL5 OU; +HYDR-3490 PO; +SILD100T PO
== END ==
LOC: M LABSMTC 09:58
PROVIDERS: ATTEND Anesthesiology
DX: Z20.828 Contact with and (suspected) exposure to other viral communicable diseases (principal); Z11.59 Encounter for screening for other viral diseases

== ENCOUNTER 2021-03-12 11:03 | Day surgery (SDC) | payer MEDICARE, MEDICAID ==
[~2021-03-12] VITALS: Ht 177.8 cm; Wt 65.0 kg
[~2021-03-12 11:03] MED LIST changes: +LIDOCAINE 2% 100MG/5ML SDV (FOR ANES.) As Ordered ONE; +NS 1,000 ML IV SCH; +propofoL 200 MG/20 ML VIAL As Ordered ONE
[2021-03-12] MEDS ORDERED: propofoL 200 MG/20 ML VIAL As Ordered ONE (12:09)
[2021-03-12] MEDS ORDERED: PHENYLephrine 500MCG 5ML (100MCG/ML) SYRINGE As Ordered ONE (12:14)
--- NOTE | 2021-03-12 12:24 | ROOR ---
Patient Name: Isaac Guadalupe Procedure Date: 03/12/2021 11:52 AM Date of : 1950 Age: 71 Room: [facility] Gender: Male Note Status: Finalized Procedure: Colonoscopy Indications: Screening for colorectal malignant neoplasm Providers: Ventura Ramirez MD Referring MD: Jorge Alexandra MD Requesting Provider: Medicines: Monitored Anesthesia Care Complications: No immediate complications. Procedure: Pre-Anesthesia Assessment: - The heart rate, respiratory rate, oxygen saturations, blood pressure, adequacy of pulmonary ventilation, and response to care were monitored throughout the procedure. The Colonoscope was introduced through the anus and advanced to the terminal ileum, with identification of the appendiceal orifice and IC valve. The colonoscopy was performed without difficulty. The patient tolerated the procedure well. The quality of the bowel preparation was good. Findings: The perianal and digital rectal examinations were normal. Mild sigmoid diverticulosis and small internal hemorrhoids. Two sessile polyps were found in the splenic flexure. The polyps were diminutive in size. These polyps were removed with a jumbo cold forceps. Resection and retrieval were complete. Mild sigmoid diverticulosis and small internal hemorrhoids. The colon (entire examined portion) is otherwise normal. Impression: - Two diminutive polyps at the splenic flexure, removed with a jumbo cold forceps. Resected and retrieved. - Minimal sigmoid diverticulosis and small internal hemorrhoids. - The colon is otherwise normal Recommendation: - Repeat colonoscopy in 5 years for surveillance. Procedure Code(s): --- Professional --- 32305, Colonoscopy, flexible; with biopsy, single or multiple Diagnosis Code(s): --- Professional --- K63.5, Polyp of colon Z12.11, Encounter for screening for malignant neoplasm of colon CPT copyright 2019 [employer]. All rights reserved. The codes documented in this report are preliminary and upon recovery room rn review may be revised to meet current compliance requirements. Ventura Ramirez MD Ventura Ramirez MD 03/12/2021 12:23:42 PM Electronically signed by Ventura Ramirez MD Number of Addenda: 0 Note Initiated On: 03/12/2021 11:52 AM Estimated Blood Loss: Estimated blood loss: none. Estimated blood loss: none.
[2021-03-12 12:45] VITALS: BP 166/86
== END 2021-03-12 12:54 | disposition home or self-care (01) ==
LOC: M OPP 11:03
PROVIDERS: ATTEND Internal Medicine Gastroenterology
DX: Z12.11 Encounter for screening for malignant neoplasm of colon (principal); K63.5 Polyp of colon; K57.30 Diverticulosis of large intestine without perforation or abscess without bleeding; K64.8 Other hemorrhoids; F17.210 Nicotine dependence, cigarettes, uncomplicated; Z79.891 Long term (current) use of opiate analgesic; Z79.899 Other long term (current) drug therapy
CPT/HCPCS: 45380; 88305; J2370

== ENCOUNTER → 2021-06-18 | Outpatient (CLI) | payer MEDICARE, MEDICAID ==
[~2021-06-18] MED LIST changes: -LIDOCAINE 2% 100MG/5ML SDV (FOR ANES.) As Ordered ONE; -NS 1,000 ML IV SCH; -propofoL 200 MG/20 ML VIAL As Ordered ONE
== END ==
LOC: M PAIN 10:00
PROVIDERS: ATTEND Anesthesiology
DX: M48.02 Spinal stenosis, cervical region (principal); M54.12 Radiculopathy, cervical region; M48.061 Spinal stenosis, lumbar region without neurogenic claudication; M54.16 Radiculopathy, lumbar region; G62.9 Polyneuropathy, unspecified; G89.29 Other chronic pain; F17.210 Nicotine dependence, cigarettes, uncomplicated; Z86.14 Personal history of Methicillin resistant Staphylococcus aureus infection; Z79.899 Other long term (current) drug therapy

== ENCOUNTER 2021-06-23 14:17 | Emergency (ER) | payer MEDICARE, MEDICAID ==
[~2021-06-23] VITALS: Ht 175.3 cm; Wt 68.2 kg
[2021-06-23 18:22] LABS: ALT/SGPT 29 IU/L (0-32); BILIRUBIN,DIRECT 0.2 MG/DL (0.0-0.2); BILIRUBIN,TOTAL 0.7 MG/DL (0.2-1.0); TOTAL PROTEIN 7.3 GM/DL (6.4-8.2)
[2021-06-23] MEDS ORDERED: VALT1TAB PO (19:01)
[2021-06-23 19:02] VITALS: BP 198/98
[2021-06-23 19:08] LABS: BLOOD UREA NITROGEN 16 MG/DL (7-18); CARBON DIOXIDE LEVEL 28 MEQ/L (21-32); CHLORIDE LEVEL 107 MEQ/L (98-107); CREATININE FOR GFR 1.43 MG/DL (0.70-1.30); GLOMERULAR FILTRATION RATE > 60.0 (>42); GLUCOSE, FASTING 108 MG/DL (70-100); POTASSIUM SERUM 4.9 MEQ/L (3.5-5.1); SODIUM LEVEL 140 MEQ/L (136-145)
[2021-06-23] MEDS ORDERED: valACYclovir HCL 500 MG TAB PO ONE (19:25)
== END 2021-06-23 19:43 | disposition home or self-care (01) ==
LOC: M ED 14:17
DX: B02.9 Zoster without complications (principal); I10 Essential (primary) hypertension; E78.5 Hyperlipidemia, unspecified; F17.200 Nicotine dependence, unspecified, uncomplicated; Z79.899 Other long term (current) drug therapy

== ENCOUNTER → 2021-08-19 | Outpatient (CLI) | payer MEDICARE, MEDICAID ==
[~2021-08-19] MED LIST changes: +VALT1TAB PO
== END ==
LOC: M PAIN 10:15
PROVIDERS: ATTEND Nurse Practitioner Family
DX: M48.02 Spinal stenosis, cervical region (principal); G89.29 Other chronic pain; F17.210 Nicotine dependence, cigarettes, uncomplicated; Z86.14 Personal history of Methicillin resistant Staphylococcus aureus infection; Z79.899 Other long term (current) drug therapy

== ENCOUNTER → 2021-11-19 | Outpatient (CLI) | payer MEDICARE, MEDICAID | LOC: M PAIN 10:15 | PROVIDERS: ATTEND Nurse Practitioner Family | DX: M50.10 Cervical disc disorder with radiculopathy, unspecified cervical region (principal); G89.29 Other chronic pain; F17.210 Nicotine dependence, cigarettes, uncomplicated; Z86.14 Personal history of Methicillin resistant Staphylococcus aureus infection; Z79.899 Other long term (current) drug therapy ==

== ENCOUNTER → 2021-11-26 | Outpatient (CLI) | payer MEDICARE, MEDICAID | LOC: M PAIN 10:00 | PROVIDERS: ATTEND Nurse Practitioner Family | DX: M50.10 Cervical disc disorder with radiculopathy, unspecified cervical region (principal); G89.29 Other chronic pain; F17.210 Nicotine dependence, cigarettes, uncomplicated; Z86.14 Personal history of Methicillin resistant Staphylococcus aureus infection; Z79.899 Other long term (current) drug therapy ==

== ENCOUNTER → 2022-01-26 | Outpatient (CLI) | payer MEDICARE, MEDICAID | LOC: M PAIN 10:00 | PROVIDERS: ATTEND Nurse Practitioner Family | DX: M50.10 Cervical disc disorder with radiculopathy, unspecified cervical region (principal); I12.9 Hypertensive chronic kidney disease with stage 1 through stage 4 chronic kidney disease, or unspecified chronic kidney disease; M25.511 Pain in right shoulder; M25.711 Osteophyte, right shoulder; N18.30 Chronic kidney disease, stage 3 unspecified; F17.210 Nicotine dependence, cigarettes, uncomplicated; Z79.891 Long term (current) use of opiate analgesic; Z79.899 Other long term (current) drug therapy ==

== ENCOUNTER → 2022-02-26 | Outpatient (CLI) | payer MEDICARE, MEDICAID | LOC: M PAIN 10:45 | PROVIDERS: ATTEND Nurse Practitioner Family | DX: M50.10 Cervical disc disorder with radiculopathy, unspecified cervical region (principal); G89.29 Other chronic pain; I10 Essential (primary) hypertension; F17.210 Nicotine dependence, cigarettes, uncomplicated; Z79.899 Other long term (current) drug therapy ==

== ENCOUNTER → 2022-05-28 | Outpatient (CLI) | payer MEDICARE, MEDICAID | LOC: M PAIN 10:00 | PROVIDERS: ATTEND Nurse Practitioner Family | DX: M50.10 Cervical disc disorder with radiculopathy, unspecified cervical region (principal); G89.29 Other chronic pain; I10 Essential (primary) hypertension; F17.210 Nicotine dependence, cigarettes, uncomplicated; Z79.899 Other long term (current) drug therapy ==

== ENCOUNTER → 2022-07-26 | Outpatient (CLI) | payer MEDICARE, MEDICAID ==
[2022-07-26 18:11] LABS: HEMATOCRIT 40.2 % (42.0-52.0); HEMOGLOBIN 13.3 g/dl (13.5-17.5); MEAN CORPUSCULAR HEMOGLOBIN 31.9 pg (27.0-33.0); MEAN CORPUSCULAR HGB CONC 33.1 g/dl (32.0-36.5); MEAN CORPUSCULAR VOLUME 96.4 fl (80.0-96.0); PLATELET COUNT, AUTOMATED 171 10^3/uL (150-450); RED BLOOD COUNT 4.17 10^6/uL (4.30-6.10); WHITE BLOOD COUNT 7.4 10^3/uL (4.0-10.0)
[2022-07-26 18:25] LABS: HEMOGLOBIN A1c 4.9 % (4.0-6.0)
[2022-07-26 18:28] LABS: CREATININE, URINE 68.8 MG/DL; MAU/CREAT RATIO 11.6 MCG/MG (0.0-30.0)
[2022-07-26 18:35] LABS: ALBUMIN 3.8 G/DL (3.2-5.2); ALKALINE PHOSPHATASE 66 U/L (46-116); ALT/SGPT 21 U/L (7.0-40); AST/SGOT 28 U/L (<34); BILIRUBIN,TOTAL 0.8 MG/DL (0.3-1.2); BLOOD UREA NITROGEN 16 MG/DL (9-23); CALCIUM LEVEL 8.8 MG/DL (8.3-10.6); CARBON DIOXIDE LEVEL 28 MMOL/L (20-31); CHLORIDE LEVEL 102 MMOL/L (98-107); CHOLESTEROL LEVEL 155 MG/DL (<200); CHOLESTEROL RISK RATIO 2.73 (<5); CREATININE FOR GFR 1.33 MG/DL (0.70-1.30); GLOMERULAR FILTRATION RATE > 60.0 (>42); GLUCOSE, FASTING 146 MG/DL (74-106); HDL CHOLESTEROL 56.7 MG/DL (>40); LDL CHOLESTEROL 86.3 MG/DL (<100); NON-HDL-C 98 MG/DL; POTASSIUM SERUM 3.8 MMOL/L (3.5-5.1); SODIUM LEVEL 137 MMOL/L (136-145); THYROID STIMULATING HORMONE 0.362 uIU/ML (0.55-4.78); TOTAL PROTEIN 6.8 G/DL (5.7-8.2); TRIGLYCERIDES LEVEL 60 MG/DL (<150)
[2022-07-26 18:43] LABS: APPEARANCE, URINE MANUAL CLEAR (CLEAR); COLOR, URINE MANUAL LT YELLOW (YELLOW)
[2022-07-26 18:44] LABS: BILIRUBIN, URINE MANUAL NEGATIVE (NEGATIVE); BLOOD URINE MANUAL POSITIVE (NEGATIVE); GLUCOSE, URINE (UA) MANUAL NEGATIVE (NEGATIVE); KETONE, URINE MANUAL NEGATIVE (NEGATIVE); LEUKOCYTE ESTERASE, URINE MAN NEGATIVE (NEGATIVE); NITRITE, URINE MANUAL NEGATIVE (NEGATIVE); PROTEIN, URINE MANUAL NEGATIVE (NEGATIVE); UROBILINOGEN, URINE MANUAL NORMAL (NORMAL)
[2022-07-26 19:18] LABS: RBC, URINE 15-20 /hpf (0-3); SQUAMOUS EPITHELIAL CELL URINE SMALL AMOUNT /hpf (SMALL AMT)
[2022-07-26 19:19] LABS: BACTERIA, URINE MOD AMOUNT
== END ==
LOC: M PLALAB 15:21
PROVIDERS: ATTEND Student in an Organized Health Care Education/Training Program
DX: F17.210 Nicotine dependence, cigarettes, uncomplicated (principal); E78.5 Hyperlipidemia, unspecified; I10 Essential (primary) hypertension

== ENCOUNTER → 2022-08-27 | Outpatient (CLI) | payer MEDICARE, MEDICAID | LOC: M PAIN 09:15 | PROVIDERS: ATTEND Nurse Practitioner Family | DX: M50.10 Cervical disc disorder with radiculopathy, unspecified cervical region (principal); G89.29 Other chronic pain; I10 Essential (primary) hypertension; F17.210 Nicotine dependence, cigarettes, uncomplicated; Z79.82 Long term (current) use of aspirin; Z79.899 Other long term (current) drug therapy ==

== ENCOUNTER → 2022-09-02 | Outpatient (CLI) | payer MEDICARE, MEDICAID | LOC: M PAIN 11:30 | PROVIDERS: ATTEND Nurse Practitioner Family | DX: Z79.891 Long term (current) use of opiate analgesic (principal) ==

== ENCOUNTER → 2022-09-06 | Outpatient (CLI) | payer MEDICARE, MEDICAID | LOC: M RAD 15:25 | PROVIDERS: ATTEND Student in an Organized Health Care Education/Training Program | DX: F17.210 Nicotine dependence, cigarettes, uncomplicated (principal) ==

== ENCOUNTER → 2022-09-20 | Outpatient (CLI) | payer MEDICARE, MEDICAID ==
[2022-09-20 12:29] LABS: BLOOD UREA NITROGEN 12 MG/DL (9-23); CALCIUM LEVEL 8.8 MG/DL (8.3-10.6); CARBON DIOXIDE LEVEL 30 MMOL/L (20-31); CHLORIDE LEVEL 105 MMOL/L (98-107); GLOMERULAR FILTRATION RATE > 60.0 (>42); GLUCOSE, FASTING 108 MG/DL (74-106); POTASSIUM SERUM 3.5 MMOL/L (3.5-5.1); SODIUM LEVEL 142 MMOL/L (136-145)
== END ==
LOC: M LAB 11:17
PROVIDERS: ATTEND Student in an Organized Health Care Education/Training Program
DX: I10 Essential (primary) hypertension (principal)

== ENCOUNTER 2022-11-03 09:32 | Outpatient (RCR) | payer MEDICARE, MEDICAID ==
[2022-11-07] MEDS ORDERED: METO1TAB87 PO (16:37)
[2022-11-07] MEDS ORDERED: LISI20TA33 PO (16:37)
[2022-11-07] MEDS ORDERED: HYDR-4517 PO (16:37)
[2022-11-07] MEDS ORDERED: BELS1TAB2 PO (16:37)
[2022-11-07] MEDS ORDERED: GABA600T4 PO (16:37)
[2022-11-09] MEDS ORDERED: AMLO1TAB25 PO (11:46)
[2022-11-09] MEDS ORDERED: PROT1TAB2 PO (11:46)
== END 2022-11-10 ==
LOC: M PT 09:32
PROVIDERS: ATTEND Student in an Organized Health Care Education/Training Program
DX: M54.41 Lumbago with sciatica, right side (principal)

== ENCOUNTER 2022-11-07 12:11 | Observation (INO) | payer MEDICARE, MEDICAID ==
[~2022-11-07] VITALS: Ht 172.7 cm; Wt 64.6 kg
[2022-11-07] MEDS ORDERED: ONDANSETRON 4MG 2ML VIAL IV ONE (12:40)
[2022-11-07] MEDS ORDERED: GI COCKTAIL 50ML BTL(HYOSCYAMINE/MAALOX/LIDOCAINE VISCOUS)(1:3:1) PO ONE (12:40)
[2022-11-07] MEDS ORDERED: PANTOPRAZOLE 40MG VIAL IV ONE (12:40)
[2022-11-07 12:57] LABS: BASO % 0.3 % (0.0-1.0); EOS % 0.1 % (0.0-3.0); HEMATOCRIT 43.1 % (42.0-52.0); HEMOGLOBIN 14.5 g/dl (13.5-17.5); LYMPH # 1.2 10^3/uL (1.5-5.0); LYMPH % 13.4 % (24.0-44.0); MEAN CORPUSCULAR HEMOGLOBIN 31.9 pg (27.0-33.0); MEAN CORPUSCULAR HGB CONC 33.6 g/dl (32.0-36.5); MEAN CORPUSCULAR VOLUME 94.7 fl (80.0-96.0); MONO # 0.3 10^3/uL (0.0-0.8); MONO % 3.6 % (2.0-8.0); NEUTROPHILS # 7.5 10^3/uL (1.5-8.5); NEUTROPHILS % 82.4 % (36.0-66.0); PLATELET COUNT, AUTOMATED 182 10^3/uL (150-450); RED BLOOD COUNT 4.55 10^6/uL (4.30-6.10); WHITE BLOOD COUNT 9.1 10^3/uL (4.0-10.0)
[2022-11-07] MEDS ORDERED: hydrALAZINE 20MG/ML 1ML VIAL IV STA ×2 (13:29→14:18)
[2022-11-07 13:35] LABS: ALBUMIN 4.4 G/DL (3.2-5.2); ALKALINE PHOSPHATASE 64 U/L (46-116); ALT/SGPT 25 U/L (7.0-40); AST/SGOT 46 U/L (<34); BILIRUBIN,DIRECT 0.3 MG/DL (<0.4); BILIRUBIN,TOTAL 1.2 MG/DL (0.3-1.2); BLOOD UREA NITROGEN 18 MG/DL (9-23); CALCIUM LEVEL 9.7 MG/DL (8.3-10.6); CARBON DIOXIDE LEVEL 25 MMOL/L (20-31); CHLORIDE LEVEL 103 MMOL/L (98-107); CK-MB VALUE MASS 1.7 NG/ML (<3.6); CPK CREATINE PHOSPHOKINASE 241 U/L (46-171); CREATININE FOR GFR 1.25 MG/DL (0.70-1.30); GLOMERULAR FILTRATION RATE > 60.0 (>42); GLUCOSE, FASTING 113 MG/DL (74-106); LIPASE 126 U/L (12-53); POTASSIUM SERUM 4.7 MMOL/L (3.5-5.1); SODIUM LEVEL 140 MMOL/L (136-145); TOTAL PROTEIN 7.7 G/DL (5.7-8.2)
[2022-11-07] MEDS ORDERED: MORPHINE 4 MG/ML 1ML VIAL IV ONE (14:20)
[2022-11-07] MEDS ORDERED: ISOVUE-370 76% 100ML VIAL As Ordered ONE (14:35)
[2022-11-07] MEDS ORDERED: METO1TAB87 PO (16:37)
[2022-11-07] MEDS ORDERED: LISI20TA33 PO (16:37)
[2022-11-07] MEDS ORDERED: GABA600T4 PO (16:37)
[2022-11-07] MEDS ORDERED: BELS1TAB2 PO (16:37)
[2022-11-07] MEDS ORDERED: HYDR-4517 PO (16:37)
[2022-11-07] MEDS ORDERED: HOME MED LIST COMPLETE! XX SCH (16:40)
[2022-11-07] MEDS ORDERED: LR 1,000 ML IV ONE (17:10)
[2022-11-07] MEDS: NORCO, ANEXSIA 5/325MG TABLET (HYDROcodone/ACETAMINOPHEN) PO PRN ×2 (17:29→21:45)
[2022-11-07 18:03] LABS: TRIGLYCERIDES LEVEL 70 MG/DL (<150)
[2022-11-07] MEDS: ONDANSETRON 4MG 2ML VIAL IV PRN (19:56)
[2022-11-07] MEDS: MORPHINE 2 MG/ML 1ML VIAL IV PRN (19:59)
[2022-11-07 20:15] VITALS: BP 198/88
[2022-11-07] MEDS: LR 1,000 ML IV SCH (20:59)
[2022-11-07] MEDS: GABAPENTIN 300 MG CAP PO SCH (21:00)
[2022-11-07] MEDS: METOPROLOL TART 25 MG TABLET PO SCH (21:00)
[2022-11-07] MEDS: ENOXAPARIN 40MG/0.4ML SYRINGE (J1650 PER 10MG) SC SCH (21:00)
[2022-11-07] MEDS: COSOPT OCUMETER PLUS 10ML (DORZOLAMIDE/TIMOLOL) OU SCH (21:44)
[2022-11-07 23:36] VITALS: BP 158/76
[2022-11-08] MEDS: ONDANSETRON 4MG 2ML VIAL IV PRN ×2 (00:12→04:36)
[2022-11-08] MEDS: MORPHINE 2 MG/ML 1ML VIAL IV PRN ×5 (00:13→22:09)
[2022-11-08] MEDS: RAMELTEON 8 MG TAB (ROZEREM) PO PRN ×2 (00:33→20:17)
[2022-11-08 03:34] VITALS: BP 145/69
[2022-11-08] MEDS: NORCO, ANEXSIA 5/325MG TABLET (HYDROcodone/ACETAMINOPHEN) PO PRN ×4 (03:54→19:30)
[2022-11-08 04:55] LABS: MEAN CORPUSCULAR HEMOGLOBIN 31.8 pg (27.0-33.0); MEAN CORPUSCULAR HGB CONC 32.9 g/dl (32.0-36.5); MEAN CORPUSCULAR VOLUME 96.6 fl (80.0-96.0); PLATELET COUNT, AUTOMATED 159 10^3/uL (150-450); RED BLOOD COUNT 3.52 10^6/uL (4.30-6.10); WHITE BLOOD COUNT 10.3 10^3/uL (4.0-10.0)
[2022-11-08 04:57] LABS: HEMOGLOBIN 11.2 g/dl (13.5-17.5)
[2022-11-08 05:18] LABS: ALBUMIN 3.2 G/DL (3.2-5.2); BILIRUBIN,TOTAL 0.9 MG/DL (0.3-1.2); CALCIUM LEVEL 8.5 MG/DL (8.3-10.6); CREATININE FOR GFR 1.53 MG/DL (0.70-1.30); POTASSIUM SERUM 3.4 MMOL/L (3.5-5.1); TOTAL PROTEIN 5.4 G/DL (5.7-8.2)
[2022-11-08] MEDS ORDERED: POTASSIUM CHLORIDE 10MEQ SR TABLET PO ONE (05:25)
[2022-11-08] MEDS: LR 1,000 ML IV SCH ×3 (06:40→20:16)
[2022-11-08 07:52] VITALS: BP 145/69
[2022-11-08] MEDS: METOPROLOL TART 25 MG TABLET PO SCH ×2 (08:43→20:19)
[2022-11-08] MEDS: PANTOPRAZOLE 40MG VIAL IV SCH (08:46)
[2022-11-08] MEDS: GABAPENTIN 300 MG CAP PO SCH ×3 (08:47→20:17)
[2022-11-08 12:00] VITALS: BP 128/63
[2022-11-08] MEDS ORDERED: DEXTROSE 50% 50ML SYRINGE IV PRN (14:50)
[2022-11-08] MEDS ORDERED: GLUCOSE 4GM CHEW TABLET PO PRN (14:50)
[2022-11-08] MEDS ORDERED: GLUCAGON INJ 1MG VIAL SC PRN (14:50)
[2022-11-08 19:03] LABS: APPEARANCE, URINE CLEAR (CLEAR); BACTERIA, URINE AUTO NEGATIVE (NEGATIVE); BILIRUBIN, URINE AUTO NEGATIVE (NEGATIVE); BLOOD, URINE BLOOD 2+ (NEGATIVE); COLOR, URINE YELLOW (YELLOW); GLUCOSE, URINE (UA) AUTO NEGATIVE (NEGATIVE); KETONE, URINE AUTO NEGATIVE (NEGATIVE); LEUKOCYTE ESTERASE, URINE AUTO NEGATIVE (NEGATIVE); NITRITE, URINE AUTO NEGATIVE (NEGATIVE); PROTEIN, URINE AUTO NEGATIVE (NEGATIVE); RBC, URINE AUTO 8 /HPF (0-3); SQUAMOUS EPITHELIAL CELL UR AU 0 /HPF (0-6); UROBILINOGEN, URINE AUTO 0.2 mg/dL (0.0-2.0); WBC, URINE AUTO 0 /HPF (0-3)
[2022-11-08] MEDS ORDERED: diphenhydrAMINE 50MG CAP PO ONE (19:55)
[2022-11-08 20:00] VITALS: BP 136/70
[2022-11-08] MEDS: ENOXAPARIN 40MG/0.4ML SYRINGE (J1650 PER 10MG) SC SCH ×2 (20:17→20:24)
[2022-11-08] MEDS: COSOPT OCUMETER PLUS 10ML (DORZOLAMIDE/TIMOLOL) OU SCH (20:18)
[2022-11-09] MEDS: NORCO, ANEXSIA 5/325MG TABLET (HYDROcodone/ACETAMINOPHEN) PO PRN ×4 (01:06→15:15)
[2022-11-09] MEDS: LR 1,000 ML IV SCH (03:10)
[2022-11-09] MEDS: MORPHINE 2 MG/ML 1ML VIAL IV PRN (03:11)
[2022-11-09 03:49] VITALS: BP 140/68
[2022-11-09 06:08] LABS: HEMATOCRIT 31.3 % (42.0-52.0); HEMOGLOBIN 10.1 g/dl (13.5-17.5); MEAN CORPUSCULAR HEMOGLOBIN 31.3 pg (27.0-33.0); MEAN CORPUSCULAR HGB CONC 32.3 g/dl (32.0-36.5); MEAN CORPUSCULAR VOLUME 96.9 fl (80.0-96.0); PLATELET COUNT, AUTOMATED 121 10^3/uL (150-450); RED BLOOD COUNT 3.23 10^6/uL (4.30-6.10); WHITE BLOOD COUNT 5.4 10^3/uL (4.0-10.0)
[2022-11-09 06:40] LABS: ALBUMIN 2.7 G/DL (3.2-5.2); ALKALINE PHOSPHATASE 40 U/L (46-116); ALT/SGPT 15 U/L (7.0-40); AST/SGOT 21 U/L (<34); BILIRUBIN,TOTAL 0.6 MG/DL (0.3-1.2); BLOOD UREA NITROGEN 14 MG/DL (9-23); CALCIUM LEVEL 8.2 MG/DL (8.3-10.6); CARBON DIOXIDE LEVEL 28 MMOL/L (20-31); CHLORIDE LEVEL 108 MMOL/L (98-107); GLOMERULAR FILTRATION RATE > 60.0 (>42); GLUCOSE, FASTING 83 MG/DL (74-106); MAGNESIUM LEVEL 1.9 MG/DL (1.8-2.4); POTASSIUM SERUM 3.7 MMOL/L (3.5-5.1); SODIUM LEVEL 142 MMOL/L (136-145); TOTAL PROTEIN 4.8 G/DL (5.7-8.2)
[2022-11-09 07:22] VITALS: BP 133/70
[2022-11-09] MEDS: METOPROLOL TART 25 MG TABLET PO SCH (08:11)
[2022-11-09 08:18] VITALS: BP 133/70
[2022-11-09] MEDS: PANTOPRAZOLE 40MG VIAL IV SCH (08:18)
[2022-11-09] MEDS: GABAPENTIN 300 MG CAP PO SCH ×2 (08:18→11:48)
[2022-11-09] MEDS ORDERED: NORCO, ANEXSIA 5/325MG TABLET (HYDROcodone/ACETAMINOPHEN) PO PRN (11:25)
[2022-11-09] MEDS ORDERED: PROT1TAB2 PO (11:46)
[2022-11-09] MEDS ORDERED: AMLO1TAB25 PO (11:46)
== END 2022-11-09 15:28 | disposition home or self-care (01) ==
LOC: M ED 12:11 → M ED INP 17:03 → M PCU 20:15
PROVIDERS: ADMIT Internal Medicine; ATTEND Internal Medicine
DX: R11.2 Nausea with vomiting, unspecified (principal); R10.9 Unspecified abdominal pain; N17.9 Acute kidney failure, unspecified; N18.9 Chronic kidney disease, unspecified; K86.2 Cyst of pancreas; I16.0 Hypertensive urgency; I12.9 Hypertensive chronic kidney disease with stage 1 through stage 4 chronic kidney disease, or unspecified chronic kidney disease; E87.29 Other acidosis; M54.12 Radiculopathy, cervical region; G62.9 Polyneuropathy, unspecified; G47.00 Insomnia, unspecified; H40.9 Unspecified glaucoma; Z79.899 Other long term (current) drug therapy; F17.210 Nicotine dependence, cigarettes, uncomplicated
CPT/HCPCS: 36415; 71046; 74177; 80048; 80053; 80076; 81001; 82550; 82553; 83605; 83690; 83735; 84478; 84484; 85025; 85027; 87635; 93005; 93041; 96361; 96374; 96375; 96376; 99285; C9113; G0378; J0360; J2405; Q9967

== ENCOUNTER → 2022-11-17 | Outpatient (CLI) | payer MEDICARE, MEDICAID ==
[~2022-11-17] MED LIST changes: +AMLO1TAB25 PO; +BELS1TAB2 PO; +GABA600T4 PO; +HYDR-4517 PO; +LISI20TA33 PO; +METO1TAB87 PO; +PROT1TAB2 PO
[2022-11-17 14:20] LABS: BLOOD UREA NITROGEN 14 MG/DL (9-23); CALCIUM LEVEL 8.8 MG/DL (8.3-10.6); CARBON DIOXIDE LEVEL 29 MMOL/L (20-31); CHLORIDE LEVEL 104 MMOL/L (98-107); GLOMERULAR FILTRATION RATE > 60.0 (>42); GLUCOSE, FASTING 97 MG/DL (74-106); POTASSIUM SERUM 4.2 MMOL/L (3.5-5.1); SODIUM LEVEL 139 MMOL/L (136-145)
== END ==
LOC: M PLALAB 11:21
PROVIDERS: ATTEND Student in an Organized Health Care Education/Training Program
DX: I10 Essential (primary) hypertension (principal)

== ENCOUNTER → 2022-11-18 | Outpatient (REF) | payer MEDICARE, MEDICAID | LOC: M SFHCPLAZ 07:12 | PROVIDERS: ATTEND Family Medicine | DX: Z53.9 Procedure and treatment not carried out, unspecified reason (principal) ==

== ENCOUNTER → 2022-11-29 | Outpatient (CLI) | payer MEDICARE, MEDICAID | LOC: M PAIN 10:00 | PROVIDERS: ATTEND Nurse Practitioner Family | DX: M50.10 Cervical disc disorder with radiculopathy, unspecified cervical region (principal); G89.29 Other chronic pain; I10 Essential (primary) hypertension; F17.210 Nicotine dependence, cigarettes, uncomplicated; Z79.82 Long term (current) use of aspirin; Z79.899 Other long term (current) drug therapy ==

== ENCOUNTER 2023-04-13 12:41 | Inpatient (IN) | payer MEDICARE, MEDICAID ==
[~2023-04-13] VITALS: Ht 172.7 cm; Wt 58.9 kg
[~2023-04-13 12:41] MED LIST changes: -AMIT25TA17 PO; +AMIT25TA19 PO
[2023-04-13] MEDS ORDERED: LISI30TA4 (13:17)
[2023-04-13] MEDS ORDERED: LOSA25TA13 (13:17)
[2023-04-13] MEDS ORDERED: HYDR-3490 PO (13:17)
[2023-04-13] MEDS ORDERED: hydrALAZINE 20MG/ML 1ML VIAL IV STA (14:04)
[2023-04-13] MEDS ORDERED: MORPHINE 4 MG/ML 1ML VIAL IV ONE (14:05)
[2023-04-13 14:26] LABS: BASO # 0.1 10^3/uL (0.0-0.2); BASO % 0.7 % (0.0-1.0); EOS % 0.1 % (0.0-3.0); HEMATOCRIT 41.6 % (42.0-52.0); HEMOGLOBIN 13.6 g/dl (13.5-17.5); LYMPH # 1.6 10^3/uL (1.5-5.0); LYMPH % 21.4 % (24.0-44.0); MEAN CORPUSCULAR HEMOGLOBIN 31.5 pg (27.0-33.0); MEAN CORPUSCULAR HGB CONC 32.7 g/dl (32.0-36.5); MEAN CORPUSCULAR VOLUME 96.3 fl (80.0-96.0); MONO # 0.4 10^3/uL (0.0-0.8); MONO % 5.2 % (2.0-8.0); NEUTROPHILS # 5.4 10^3/uL (1.5-8.5); NEUTROPHILS % 71.9 % (36.0-66.0); PLATELET COUNT, AUTOMATED 206 10^3/uL (150-450); RED BLOOD COUNT 4.32 10^6/uL (4.30-6.10); WHITE BLOOD COUNT 7.5 10^3/uL (4.0-10.0)
[2023-04-13 14:41] LABS: INR 1.12; PROTHROMBIN TIME 14.1 SECONDS (12.5-14.5)
[2023-04-13 14:42] LABS: PARTIAL THROMBOPLASTIN TIME 26.4 SECONDS (24.8-34.2)
[2023-04-13 14:54] LABS: CPK CREATINE PHOSPHOKINASE 168 U/L (46-171)
[2023-04-13 14:55] LABS: ALBUMIN 4.1 G/DL (3.2-5.2); ALKALINE PHOSPHATASE 75 U/L (46-116); ALT/SGPT 16 U/L (7.0-40); AST/SGOT 21 U/L (<34); BILIRUBIN,DIRECT 0.3 MG/DL (<0.4); BILIRUBIN,TOTAL 0.7 MG/DL (0.3-1.2); BLOOD UREA NITROGEN 14 MG/DL (9-23); CALCIUM LEVEL 9.5 MG/DL (8.3-10.6); CARBON DIOXIDE LEVEL 29 MMOL/L (20-31); CHLORIDE LEVEL 102 MMOL/L (98-107); CREATININE FOR GFR 1.18 MG/DL (0.70-1.30); GLOMERULAR FILTRATION RATE > 60.0 (>42); GLUCOSE, FASTING 103 MG/DL (74-106); MB/CK RELATIVE INDEX 0.59 (< OR =4); POTASSIUM SERUM 3.9 MMOL/L (3.5-5.1); SODIUM LEVEL 139 MMOL/L (136-145); TOTAL PROTEIN 7.5 G/DL (5.7-8.2)
[2023-04-13 14:57] LABS: FREE T4 0.97 NG/DL (0.89-1.76); THYROID STIMULATING HORMONE 0.301 uIU/ML (0.55-4.78)
[2023-04-13 14:59] LABS: RSV AMPLIFICATION NEGATIVE (NEGATIVE)
[2023-04-13] MEDS ORDERED: hydrALAZINE 20MG/ML 1ML VIAL IV ONE (15:20)
[2023-04-13] MEDS ORDERED: PERCOCET 5MG/325MG TAB PO ONE (16:10)
[2023-04-13] MEDS ORDERED: MED REC IN PROGRESS XX SCH (16:20)
[2023-04-13] MEDS ORDERED: ACETAMINOPHEN TAB 650MG DOSE (2X325MG) PO PRN (17:05)
[2023-04-13] MEDS ORDERED: SUCR1TAB56 PO (17:34)
[2023-04-13] MEDS ORDERED: HOME MED LIST COMPLETE! XX SCH (17:35)
[2023-04-13] MEDS ORDERED: MORPHINE 4 MG/ML 1ML VIAL IV PRN (17:40)
[2023-04-13 18:00] VITALS: BP 157/84
[2023-04-13] MEDS: hydrALAZINE 20MG/ML 1ML VIAL IV SCH ×2 (18:00→23:11)
[2023-04-13 18:25] LABS: LIPASE 30 U/L (12-53)
[2023-04-13 18:26] LABS: CK-MB VALUE MASS < 1.0 NG/ML (<3.6)
[2023-04-13 18:27] LABS: CPK CREATINE PHOSPHOKINASE 156 U/L (46-171); MB/CK RELATIVE INDEX 0.64 (< OR =4)
[2023-04-13 19:45] VITALS: BP 163/79; TEMP 98.3; O2SAT 97
[2023-04-13] MEDS ORDERED: GABAPENTIN 300 MG CAP PO SCH (21:00)
[2023-04-13] MEDS ORDERED: COSOPT OCUMETER PLUS 10ML (DORZOLAMIDE/TIMOLOL) OU SCH (21:00)
[2023-04-13] MEDS: SUCRALFATE 1 GM TAB PO SCH (21:10)
[2023-04-13] MEDS: METOPROLOL TART 25 MG TABLET PO SCH (21:10)
[2023-04-13] MEDS: ANEXSIA, NORCO 7.5MG/325MG TABLET(HYDROCODONE/APAP) PO PRN (21:11)
[2023-04-13] MEDS: LOSARTAN 25 MG TAB PO SCH (21:11)
[2023-04-13] MEDS: HEPARIN SOD (PORCINE) 5000UNITS/ML 1ML VIAL/SYRINGE SC SCH (21:14)
[2023-04-13 23:09] VITALS: BP 106/58; TEMP 98.6; O2SAT 100
[2023-04-14 03:42] VITALS: BP 158/87; TEMP 98.6; O2SAT 100
[2023-04-14] MEDS: ANEXSIA, NORCO 7.5MG/325MG TABLET(HYDROCODONE/APAP) PO PRN ×2 (03:44→09:38)
[2023-04-14] MEDS: HEPARIN SOD (PORCINE) 5000UNITS/ML 1ML VIAL/SYRINGE SC SCH ×2 (05:01→14:37)
[2023-04-14] MEDS: hydrALAZINE 20MG/ML 1ML VIAL IV SCH (05:38)
[2023-04-14 06:21] LABS: HEMATOCRIT 39.5 % (42.0-52.0); HEMOGLOBIN 12.8 g/dl (13.5-17.5); MEAN CORPUSCULAR HEMOGLOBIN 31.1 pg (27.0-33.0); MEAN CORPUSCULAR HGB CONC 32.4 g/dl (32.0-36.5); MEAN CORPUSCULAR VOLUME 96.1 fl (80.0-96.0); PLATELET COUNT, AUTOMATED 187 10^3/uL (150-450); RED BLOOD COUNT 4.11 10^6/uL (4.30-6.10); WHITE BLOOD COUNT 7.8 10^3/uL (4.0-10.0)
[2023-04-14 06:52] LABS: BLOOD UREA NITROGEN 22 MG/DL (9-23); CALCIUM LEVEL 9.2 MG/DL (8.3-10.6); CARBON DIOXIDE LEVEL 30 MMOL/L (20-31); CHLORIDE LEVEL 104 MMOL/L (98-107); CREATININE FOR GFR 1.38 MG/DL (0.70-1.30); GLOMERULAR FILTRATION RATE > 60.0 (>42); GLUCOSE, FASTING 92 MG/DL (74-106); MAGNESIUM LEVEL 2.2 MG/DL (1.8-2.4); SODIUM LEVEL 140 MMOL/L (136-145)
[2023-04-14 07:46] VITALS: BP 162/90; TEMP 98.6; O2SAT 100
[2023-04-14] MEDS ORDERED: PANTOPRAZOLE 40MG TAB (PROTONIX) PO SCH (09:00)
[2023-04-14] MEDS ORDERED: CYCLOBENZAPRINE 10MG TABLET PO SCH (09:00)
[2023-04-14] MEDS ORDERED: hydroCHLOROthiazide 12.5 MG CAPSULE PO SCH (09:00)
[2023-04-14] MEDS: METOPROLOL TART 25 MG TABLET PO SCH (09:06)
[2023-04-14] MEDS: GABAPENTIN 300 MG CAP PO SCH ×2 (09:06→11:22)
[2023-04-14] MEDS: LOSARTAN 25 MG TAB PO SCH (09:06)
[2023-04-14] MEDS: SUCRALFATE 1 GM TAB PO SCH (09:06)
[2023-04-14 11:54] VITALS: BP 154/76; TEMP 97.4; O2SAT 98
[2023-04-14] MEDS ORDERED: LOSA-527 PO (11:58)
[2023-04-14] MEDS ORDERED: CYCL10TA20 PO (11:58)
[2023-04-14] MEDS ORDERED: HYDR-4517 PO (13:24)
[2023-04-14] MEDS ORDERED: ANEXSIA, NORCO 7.5MG/325MG TABLET(HYDROCODONE/APAP) PO PRN (13:30)
[2023-04-15] MEDS ORDERED: LOSARTAN 25 MG TAB PO SCH (09:00)
== END 2023-04-14 14:58 | disposition home health service (06) | DRG 552 ==
LOC: M ED 12:41 → M ED INP 16:41 → M PCU 19:41
PROVIDERS: ADMIT Internal Medicine; ATTEND Internal Medicine
DX: M54.16 Radiculopathy, lumbar region (principal); K86.1 Other chronic pancreatitis; I16.0 Hypertensive urgency; N18.30 Chronic kidney disease, stage 3 unspecified; K21.9 Gastro-esophageal reflux disease without esophagitis; I12.9 Hypertensive chronic kidney disease with stage 1 through stage 4 chronic kidney disease, or unspecified chronic kidney disease; H40.9 Unspecified glaucoma; F17.210 Nicotine dependence, cigarettes, uncomplicated; Z79.899 Other long term (current) drug therapy; G89.29 Other chronic pain

== ENCOUNTER 2023-04-18 18:29 | Observation (INO) | payer MEDICARE, MEDICAID ==
[~2023-04-18] VITALS: Ht 172.7 cm; Wt 66.5 kg
[~2023-04-18 18:29] MED LIST changes: +CYCL10TA20 PO; +LISI30TA4; +LOSA-527 PO; +LOSA25TA13; +SUCR1TAB56 PO
[2023-04-18] MEDS ORDERED: NALOXONE INJ 0.4MG/1ML VIAL IV STA (18:36)
[2023-04-18 19:05] LABS: BASO # 0.1 10^3/uL (0.0-0.2); BASO % 0.8 % (0.0-1.0); EOS # 0.1 10^3/uL (0.0-0.5); EOS % 1.3 % (0.0-3.0); HEMOGLOBIN 11.9 g/dl (13.5-17.5); LYMPH # 1.8 10^3/uL (1.5-5.0); MEAN CORPUSCULAR HEMOGLOBIN 31.3 pg (27.0-33.0); MEAN CORPUSCULAR HGB CONC 32.2 g/dl (32.0-36.5); MEAN CORPUSCULAR VOLUME 97.4 fl (80.0-96.0); MONO # 0.6 10^3/uL (0.0-0.8); MONO % 9.7 % (2.0-8.0); NEUTROPHILS # 3.6 10^3/uL (1.5-8.5); NEUTROPHILS % 58.9 % (36.0-66.0); PLATELET COUNT, AUTOMATED 186 10^3/uL (150-450); WHITE BLOOD COUNT 6.1 10^3/uL (4.0-10.0)
[2023-04-18] MEDS ORDERED: METOPROLOL TART 25 MG TABLET PO ONE (19:15)
[2023-04-18 19:20] LABS: ABG BASE EXCESS -0.9 (-2.0-2.0); ABG HCO3 25.4 MMOL/L (22.0-26.0); ABG O2 SATURATION 99.1 % (95.0-99.0); ABG PARTIAL PRESSURE CO2 48.4 mmHg (35.0-45.0); ABG PARTIAL PRESSURE O2 150.1 mmHg (75.0-100.0); ABG STANDARD HCO3 23.8 MMOL/L. (22.0-26.0); ABG TOTAL CO2 26.8 MMOL/L (23.0-31.0); ABG pH (ARTERIAL) 7.337 UNITS (7.350-7.450)
[2023-04-18 19:30] LABS: ETHYL ALCOHOL (ETHANOL) < 0.003 % (0.000-0.010)
[2023-04-18 19:31] LABS: SALICYLATE LEVEL < 3.0 MG/DL (<30)
[2023-04-18 19:32] LABS: ALBUMIN 3.6 G/DL (3.2-5.2); ALKALINE PHOSPHATASE 67 U/L (46-116); ALT/SGPT 26 U/L (7.0-40); AST/SGOT 28 U/L (<34); BILIRUBIN,DIRECT 0.2 MG/DL (<0.4); BILIRUBIN,TOTAL 0.5 MG/DL (0.3-1.2); BLOOD UREA NITROGEN 28 MG/DL (9-23); CALCIUM LEVEL 8.8 MG/DL (8.3-10.6); CARBON DIOXIDE LEVEL 27 MMOL/L (20-31); CHLORIDE LEVEL 105 MMOL/L (98-107); CK-MB VALUE MASS < 1.0 NG/ML (<3.6); CPK CREATINE PHOSPHOKINASE 133 U/L (46-171); CREATININE FOR GFR 1.54 MG/DL (0.70-1.30); GLOMERULAR FILTRATION RATE 57.4 (>42); GLUCOSE, FASTING 107 MG/DL (74-106); MB/CK RELATIVE INDEX 0.75 (< OR =4); POTASSIUM SERUM 4.6 MMOL/L (3.5-5.1); SODIUM LEVEL 140 MMOL/L (136-145); TOTAL PROTEIN 6.6 G/DL (5.7-8.2)
[2023-04-18 20:56] LABS: CK-MB VALUE MASS 1.4 NG/ML (<3.6)
[2023-04-18 21:19] LABS: AMPHETAMINES LEVEL URINE NEGATIVE (NEGATIVE); BARBITURATES URINE NEGATIVE (NEGATIVE); BENZODIAZEPINES URINE NEGATIVE (NEGATIVE); COCAINE METABOLITE URINE NEGATIVE (NEGATIVE); METHADONE URINE NEGATIVE (NEGATIVE); OPIATES URINE NEGATIVE (NEGATIVE); PHENCYCLIDINE URINE NEGATIVE (NEGATIVE)
[2023-04-18 21:21] LABS: MB/CK RELATIVE INDEX 1.12 (< OR =4)
[2023-04-18 21:21] LABS: CANNABINOIDS URINE POSITIVE (NEGATIVE)
[2023-04-18] MEDS ORDERED: AMLO1TAB25 PO (23:28)
[2023-04-18] MEDS ORDERED: HYDR-4517 PO (23:28)
[2023-04-18] MEDS ORDERED: PANT40TA29 PO (23:28)
[2023-04-18] MEDS ORDERED: LOSA25TA13 PO (23:28)
[2023-04-18] MEDS ORDERED: SUCR1TAB56 PO (23:28)
[2023-04-18] MEDS ORDERED: CYCL5TAB PO (23:28)
[2023-04-18 23:29] LABS: RSV AMPLIFICATION NEGATIVE (NEGATIVE)
[2023-04-18] MEDS ORDERED: MOM 30ML SUSPENSION UDC PO PRN (23:30)
[2023-04-18] MEDS ORDERED: HOME MED LIST COMPLETE! XX SCH (23:30)
[2023-04-18] MEDS ORDERED: ACETAMINOPHEN TAB 650MG DOSE (2X325MG) PO PRN (23:30)
[2023-04-18] MEDS ORDERED: CYCL10TA20 PO (23:58)
[2023-04-19] VITALS (8 sets, daily range): BP systolic 129–168; BP diastolic 71–92; TEMP 97.8–98.8; O2SAT 97–100
[2023-04-19] MEDS: HEPARIN SOD (PORCINE) 5000UNITS/ML 1ML VIAL/SYRINGE SC SCH ×4 (05:18→22:00)
[2023-04-19 07:16] LABS: HEMATOCRIT 34.9 % (42.0-52.0); HEMOGLOBIN 11.1 g/dl (13.5-17.5); MEAN CORPUSCULAR HEMOGLOBIN 31.2 pg (27.0-33.0); MEAN CORPUSCULAR HGB CONC 31.8 g/dl (32.0-36.5); PLATELET COUNT, AUTOMATED 161 10^3/uL (150-450); RED BLOOD COUNT 3.56 10^6/uL (4.30-6.10); WHITE BLOOD COUNT 6.8 10^3/uL (4.0-10.0)
[2023-04-19 07:46] LABS: ALBUMIN 3.3 G/DL (3.2-5.2); ALKALINE PHOSPHATASE 73 U/L (46-116); ALT/SGPT 29 U/L (7.0-40); AST/SGOT 27 U/L (<34); BILIRUBIN,TOTAL 0.5 MG/DL (0.3-1.2); BLOOD UREA NITROGEN 27 MG/DL (9-23); CARBON DIOXIDE LEVEL 30 MMOL/L (20-31); CHLORIDE LEVEL 104 MMOL/L (98-107); GLOMERULAR FILTRATION RATE > 60.0 (>42); GLUCOSE, FASTING 113 MG/DL (74-106); SODIUM LEVEL 140 MMOL/L (136-145); TOTAL PROTEIN 6.3 G/DL (5.7-8.2)
[2023-04-19] MEDS: SUCRALFATE 1 GM TAB PO SCH ×2 (09:22→20:16)
[2023-04-19] MEDS: PANTOPRAZOLE 40MG TAB (PROTONIX) PO SCH (09:22)
[2023-04-19] MEDS: LOSARTAN 25 MG TAB PO SCH (09:23)
[2023-04-19] MEDS: METOPROLOL TART 25 MG TABLET PO SCH ×2 (09:24→20:16)
[2023-04-19] MEDS: GABAPENTIN 300 MG CAP PO SCH ×2 (17:07→20:16)
[2023-04-19] MEDS: ANEXSIA, NORCO 7.5MG/325MG TABLET(HYDROCODONE/APAP) PO PRN ×2 (17:10→21:56)
[2023-04-20] VITALS (10 sets, daily range): BP systolic 146–182; BP diastolic 70–90; TEMP 97.1–97.9; O2SAT 99–100
[2023-04-20] MEDS: ANEXSIA, NORCO 7.5MG/325MG TABLET(HYDROCODONE/APAP) PO PRN ×2 (03:30→09:58)
[2023-04-20] MEDS: HEPARIN SOD (PORCINE) 5000UNITS/ML 1ML VIAL/SYRINGE SC SCH (06:00)
[2023-04-20] MEDS: SUCRALFATE 1 GM TAB PO SCH (08:29)
[2023-04-20] MEDS: METOPROLOL TART 25 MG TABLET PO SCH (08:29)
[2023-04-20] MEDS: GABAPENTIN 300 MG CAP PO SCH (08:29)
[2023-04-20] MEDS: PANTOPRAZOLE 40MG TAB (PROTONIX) PO SCH (08:29)
[2023-04-20] MEDS: LOSARTAN 25 MG TAB PO SCH (08:30)
[2023-04-20] MEDS ORDERED: LOSA50TA28 PO (11:49)
[2023-04-20] MEDS ORDERED: LOSARTAN 25 MG TAB PO ONE (12:00)
== END 2023-04-20 13:09 | disposition home or self-care (01) ==
LOC: EDBD 18:29 → M ED 18:29 → M ED INP 23:29 → INTOOBSV 23:29 → M PCU 04-19 01:35
PROVIDERS: ADMIT Family Medicine; ATTEND Family Medicine
DX: R55 Syncope and collapse (principal); T88.7XXA Unspecified adverse effect of drug or medicament, initial encounter; I27.0 Primary pulmonary hypertension; M54.32 Sciatica, left side; M25.511 Pain in right shoulder; H40.9 Unspecified glaucoma; Z79.891 Long term (current) use of opiate analgesic; B18.2 Chronic viral hepatitis C; N18.30 Chronic kidney disease, stage 3 unspecified; I12.9 Hypertensive chronic kidney disease with stage 1 through stage 4 chronic kidney disease, or unspecified chronic kidney disease; K86.1 Other chronic pancreatitis; G47.00 Insomnia, unspecified
CPT/HCPCS: 36415; 36600; 70450; 71045; 80047; 80048; 80053; 80076; 80143; 80307; 81001; 82077; 82140; 82550; 82553; 82803; 84443; 84484; 85025; 85027; 87631; 93005; 93041; 93306; 94760; 96374; 97161; 99285; G0378; J2310

== ENCOUNTER → 2023-04-28 | Outpatient (CLI) | payer MEDICARE, MEDICAID ==
[~2023-04-28] MED LIST changes: +CYCL5TAB PO; +LOSA25TA13 PO; +LOSA50TA28 PO; +PANT40TA29 PO
== END ==
LOC: M RAD 09:00
PROVIDERS: ATTEND Student in an Organized Health Care Education/Training Program
DX: I10 Essential (primary) hypertension (principal); R94.4 Abnormal results of kidney function studies

== ENCOUNTER → 2023-05-24 | Outpatient (CLI) | payer MEDICARE, MEDICAID | LOC: M PAIN 11:00 | PROVIDERS: ATTEND Nurse Practitioner Family | DX: M50.10 Cervical disc disorder with radiculopathy, unspecified cervical region (principal); G89.29 Other chronic pain; F17.210 Nicotine dependence, cigarettes, uncomplicated; Z80.8 Family history of malignant neoplasm of other organs or systems; Z79.82 Long term (current) use of aspirin; Z79.899 Other long term (current) drug therapy ==

== ENCOUNTER 2023-06-13 12:43 | Emergency (ER) | payer MEDICARE, MEDICAID ==
[~2023-06-13] VITALS: Ht 172.7 cm; Wt 63.6 kg
[2023-06-13] MEDS ORDERED: ONDANSETRON 4MG 2ML VIAL IV ONE (13:45)
[2023-06-13] MEDS ORDERED: MORPHINE 4 MG/ML 1ML VIAL IV PRN (13:45)
[2023-06-13] MEDS: NS 1,000 ML IV SCH ×2 (13:51→17:11)
[2023-06-13 13:53] LABS: BASO % 0.5 % (0.0-1.0); EOS % 0.1 % (0.0-3.0); HEMATOCRIT 37.2 % (42.0-52.0); HEMOGLOBIN 12.6 g/dl (13.5-17.5); LYMPH # 1.4 10^3/uL (1.5-5.0); LYMPH % 16.6 % (24.0-44.0); MEAN CORPUSCULAR HEMOGLOBIN 31.7 pg (27.0-33.0); MEAN CORPUSCULAR HGB CONC 33.9 g/dl (32.0-36.5); MEAN CORPUSCULAR VOLUME 93.7 fl (80.0-96.0); MONO # 0.4 10^3/uL (0.0-0.8); MONO % 4.3 % (2.0-8.0); NEUTROPHILS # 6.3 10^3/uL (1.5-8.5); NEUTROPHILS % 78.3 % (36.0-66.0); PLATELET COUNT, AUTOMATED 221 10^3/uL (150-450); RED BLOOD COUNT 3.97 10^6/uL (4.30-6.10); WHITE BLOOD COUNT 8.1 10^3/uL (4.0-10.0)
[2023-06-13 14:21] LABS: LIPASE 32 U/L (12-53)
[2023-06-13 14:24] LABS: ALBUMIN 4.1 G/DL (3.2-5.2); ALKALINE PHOSPHATASE 76 U/L (46-116); ALT/SGPT 16 U/L (7.0-40); AST/SGOT 19 U/L (<34); BILIRUBIN,DIRECT 0.3 MG/DL (<0.4); BILIRUBIN,TOTAL 0.8 MG/DL (0.3-1.2); BLOOD UREA NITROGEN 13 MG/DL (9-23); CALCIUM LEVEL 9.9 MG/DL (8.3-10.6); CARBON DIOXIDE LEVEL 24 MMOL/L (20-31); CHLORIDE LEVEL 102 MMOL/L (98-107); CREATININE FOR GFR 1.24 MG/DL (0.70-1.30); GLOMERULAR FILTRATION RATE > 60.0 (>42); GLUCOSE, FASTING 117 MG/DL (74-106); POTASSIUM SERUM 3.7 MMOL/L (3.5-5.1); SODIUM LEVEL 137 MMOL/L (136-145); TOTAL PROTEIN 7.4 G/DL (5.7-8.2)
[2023-06-13] MEDS: HYDROMORPHONE HCL 0.5 MG/ 0.5 ML SYRINGE IV PRN ×2 (14:33→15:14)
[2023-06-13] MEDS ORDERED: ISOVUE-370 76% 100ML VIAL As Ordered ONE (14:38)
[2023-06-13] MEDS ORDERED: METOCLOPRAMIDE INJ 10MG/2ML VIAL IV ONE (15:10)
[2023-06-13] MEDS ORDERED: ONDA4TAB6 PO (17:56)
[2023-06-13 18:01] VITALS: BP 168/80; TEMP 98.4; O2SAT 100
== END 2023-06-13 18:18 | disposition home or self-care (01) ==
LOC: M ED 12:43
DX: R10.9 Unspecified abdominal pain (principal); R19.7 Diarrhea, unspecified; I10 Essential (primary) hypertension; E78.5 Hyperlipidemia, unspecified; K57.92 Diverticulitis of intestine, part unspecified, without perforation or abscess without bleeding; F17.200 Nicotine dependence, unspecified, uncomplicated; Z79.811 Long term (current) use of aromatase inhibitors; Z79.891 Long term (current) use of opiate analgesic; Z79.83 Long term (current) use of bisphosphonates; Z79.899 Other long term (current) drug therapy
CPT/HCPCS: 74177; 80048; 80076; 83605; 83690; 85025; 93005; 93041; 96361; 96374; 96375; 96376; 99285; J1170; J2405; J2765; Q9967

== ENCOUNTER → 2023-08-17 | Outpatient (CLI) | payer MEDICARE, MEDICAID ==
[~2023-08-17] MED LIST changes: +GASTROGRAFIN SOLUTION 30ML As Ordered ONE; +ISOVUE-370 76% 100ML VIAL As Ordered ONE; +ONDA4TAB6 PO
== END ==
LOC: M RAD 09:03
PROVIDERS: ATTEND Surgery
DX: K86.0 Alcohol-induced chronic pancreatitis (principal)
CPT/HCPCS: 74177; Q9963; Q9967

== ENCOUNTER 2023-10-27 11:00 | Emergency (ER) | payer MEDICARE, MEDICAID ==
[~2023-10-27] VITALS: Ht 172.7 cm; Wt 60.7 kg
[~2023-10-27 11:00] MED LIST changes: -GASTROGRAFIN SOLUTION 30ML As Ordered ONE; -ISOVUE-370 76% 100ML VIAL As Ordered ONE
[2023-10-27 12:44] LABS: BASO % 0.6 % (0.0-1.0); EOS # 0.1 10^3/uL (0.0-0.5); HEMATOCRIT 42.8 % (42.0-52.0); HEMOGLOBIN 14.2 g/dl (13.5-17.5); LYMPH # 1.5 10^3/uL (1.5-5.0); LYMPH % 21.6 % (24.0-44.0); MEAN CORPUSCULAR HGB CONC 33.2 g/dl (32.0-36.5); MEAN CORPUSCULAR VOLUME 93.4 fl (80.0-96.0); MONO # 0.4 10^3/uL (0.0-0.8); NEUTROPHILS # 4.9 10^3/uL (1.5-8.5); NEUTROPHILS % 70.5 % (36.0-66.0); PLATELET COUNT, AUTOMATED 191 10^3/uL (150-450); RED BLOOD COUNT 4.58 10^6/uL (4.30-6.10)
[2023-10-27 13:02] LABS: LIPASE 31 U/L (12-53)
[2023-10-27 13:04] LABS: ALBUMIN 3.9 G/DL (3.2-5.2); ALKALINE PHOSPHATASE 85 U/L (46-116); ALT/SGPT 17 U/L (7.0-40); AST/SGOT 19 U/L (<34); BILIRUBIN,DIRECT 0.3 MG/DL (<0.4); BILIRUBIN,TOTAL 0.8 MG/DL (0.3-1.2); BLOOD UREA NITROGEN 19 MG/DL (9-23); CALCIUM LEVEL 9.6 MG/DL (8.3-10.6); CARBON DIOXIDE LEVEL 28 MMOL/L (20-31); CHLORIDE LEVEL 106 MMOL/L (98-107); CREATININE FOR GFR 1.48 MG/DL (0.70-1.30); GLOMERULAR FILTRATION RATE > 60.0 (>42); GLUCOSE, FASTING 119 MG/DL (74-106); POTASSIUM SERUM 4.5 MMOL/L (3.5-5.1); SODIUM LEVEL 140 MMOL/L (136-145); TOTAL PROTEIN 7.2 G/DL (5.7-8.2)
[2023-10-27] MEDS ORDERED: ISOVUE-370 76% 100ML VIAL As Ordered ONE (15:25)
[2023-10-27] MEDS: LR 1,000 ML IV ONE (15:37)
[2023-10-27] MEDS: ONDANSETRON 4MG 2ML VIAL IV ONE (15:37)
[2023-10-27 17:31] VITALS: TEMP 97.5
[2023-10-27] MEDS: MORPHINE 2 MG/ML 1ML VIAL IV ONE ×2 (17:33→18:12)
[2023-10-27] MEDS: METOPROLOL TART 25 MG TABLET PO ONE (18:12)
[2023-10-27 18:55] VITALS: BP 190/98; O2SAT 99
== END 2023-10-27 19:12 | disposition home or self-care (01) ==
LOC: M ED 11:00
DX: K86.1 Other chronic pancreatitis (principal); K86.2 Cyst of pancreas; I10 Essential (primary) hypertension; E78.5 Hyperlipidemia, unspecified; K21.9 Gastro-esophageal reflux disease without esophagitis; B17.9 Acute viral hepatitis, unspecified; N18.9 Chronic kidney disease, unspecified; F17.200 Nicotine dependence, unspecified, uncomplicated; F10.10 Alcohol abuse, uncomplicated; Z79.52 Long term (current) use of systemic steroids; Z79.811 Long term (current) use of aromatase inhibitors; Z79.810 Long term (current) use of selective estrogen receptor modulators (SERMs); Z79.899 Other long term (current) drug therapy
CPT/HCPCS: 74177; 80048; 80076; 83690; 85025; 96374; 96375; 99284; J2405; Q9967

== ENCOUNTER → 2023-11-04 | Outpatient (CLI) | payer MEDICARE, MEDICAID ==
[~2023-11-04] MED LIST changes: +CREO3600; +HYDR50TAB; +ONDA-84
[2023-11-04 10:55] LABS: CALCIUM LEVEL 9.3 MG/DL (8.3-10.6); CREATININE FOR GFR 1.64 MG/DL (0.70-1.30); GLOMERULAR FILTRATION RATE 53.4 (>42); POTASSIUM SERUM 4.6 MMOL/L (3.5-5.1)
== END ==
LOC: M PLALAB 07:12
PROVIDERS: ATTEND Student in an Organized Health Care Education/Training Program
DX: I10 Essential (primary) hypertension (principal)

== ENCOUNTER → 2023-11-09 | Outpatient (CLI) | payer MEDICARE, MEDICAID ==
[2023-11-09 12:18] LABS: ALBUMIN 3.6 G/DL (3.2-5.2); BILIRUBIN,TOTAL 0.3 MG/DL (0.3-1.2); CREATININE FOR GFR 1.9 MG/DL (0.70-1.30); GLOMERULAR FILTRATION RATE 45.1 (>42); POTASSIUM SERUM 4.1 MMOL/L (3.5-5.1); TOTAL PROTEIN 6.6 G/DL (5.7-8.2)
== END ==
LOC: M PLALAB 07:47
PROVIDERS: ATTEND Student in an Organized Health Care Education/Training Program
DX: K86.1 Other chronic pancreatitis (principal); I10 Essential (primary) hypertension

== ENCOUNTER → 2023-11-09 | Outpatient (CLI) | payer MEDICARE, MEDICAID | LOC: M RAD 15:43 | PROVIDERS: ATTEND Family Medicine | DX: Z53.9 Procedure and treatment not carried out, unspecified reason (principal) ==

== ENCOUNTER 2023-11-10 07:43 | Emergency (ER) | payer MEDICARE, MEDICAID ==
[~2023-11-10] VITALS: Ht 172.7 cm; Wt 63.3 kg
[~2023-11-10 07:43] MED LIST changes: -CREO3600; -HYDR50TAB; -ONDA-84
[2023-11-10] MEDS ORDERED: CREO3600 (07:55)
[2023-11-10] MEDS ORDERED: HYDR50TAB (07:55)
[2023-11-10] MEDS ORDERED: LOSA50TA28 PO (07:55)
[2023-11-10] MEDS ORDERED: ONDA-84 (07:55)
[2023-11-10] MEDS: NS 500 ML IV ONE (09:09)
[2023-11-10 09:19] LABS: BASO # 0.1 10^3/uL (0.0-0.2); BASO % 0.9 % (0.0-1.0); EOS # 0.2 10^3/uL (0.0-0.5); EOS % 2.4 % (0.0-3.0); HEMATOCRIT 36.1 % (42.0-52.0); HEMOGLOBIN 11.6 g/dl (13.5-17.5); MEAN CORPUSCULAR HEMOGLOBIN 30.7 pg (27.0-33.0); MEAN CORPUSCULAR HGB CONC 32.1 g/dl (32.0-36.5); MEAN CORPUSCULAR VOLUME 95.5 fl (80.0-96.0); MONO # 0.6 10^3/uL (0.0-0.8); MONO % 9.2 % (2.0-8.0); NEUTROPHILS # 3.7 10^3/uL (1.5-8.5); NEUTROPHILS % 56.2 % (36.0-66.0); PLATELET COUNT, AUTOMATED 176 10^3/uL (150-450); RED BLOOD COUNT 3.78 10^6/uL (4.30-6.10); WHITE BLOOD COUNT 6.6 10^3/uL (4.0-10.0)
[2023-11-10 09:29] LABS: ALBUMIN 3.4 G/DL (3.2-5.2); BILIRUBIN,TOTAL 0.3 MG/DL (0.3-1.2); CALCIUM LEVEL 9.4 MG/DL (8.3-10.6); CREATININE FOR GFR 1.55 MG/DL (0.70-1.30); PHOSPHORUS LEVEL 3.2 MG/DL (2.4-5.1); POTASSIUM SERUM 4.4 MMOL/L (3.5-5.1); TOTAL PROTEIN 6.4 G/DL (5.7-8.2)
[2023-11-10] MEDS: ACETAMINOPHEN *IV* 1,000 MG in IV 1 EA IV ONE (09:39)
[2023-11-10 10:02] VITALS: BP 155/79; TEMP 98.3; O2SAT 98
== END 2023-11-10 10:28 | disposition home or self-care (01) ==
LOC: M ED 07:43
DX: R94.4 Abnormal results of kidney function studies (principal); N18.30 Chronic kidney disease, stage 3 unspecified; I10 Essential (primary) hypertension; F17.200 Nicotine dependence, unspecified, uncomplicated; F10.10 Alcohol abuse, uncomplicated; B19.9 Unspecified viral hepatitis without hepatic coma; Z79.811 Long term (current) use of aromatase inhibitors; Z79.899 Other long term (current) drug therapy
CPT/HCPCS: 76775; 80053; 80307; 83690; 83735; 84100; 85025; 96365; 99283; J0131

== ENCOUNTER → 2023-11-10 | Outpatient (CLI) | payer MEDICARE, MEDICAID | LOC: M RAD 13:14 | PROVIDERS: ATTEND Family Medicine | DX: K86.1 Other chronic pancreatitis (principal); Z53.8 Procedure and treatment not carried out for other reasons ==

== ENCOUNTER → 2023-11-11 | Outpatient (CLI) | payer MEDICARE, MEDICAID ==
[~2023-11-11] MED LIST changes: +ASPI81TA26 PO; +CREO3600; +GASTROGRAFIN SOLUTION 30ML As Ordered ONE; +HYDR50TAB PO; +ISOVUE-370 76% 100ML VIAL As Ordered ONE; +ONDA-282 PO; +ONDA-84; -ONDA4TAB6 PO
== END ==
LOC: M RAD 10:08
PROVIDERS: ATTEND Student in an Organized Health Care Education/Training Program
DX: K86.1 Other chronic pancreatitis (principal)
CPT/HCPCS: 74178; Q9963; Q9967

== ENCOUNTER 2023-11-16 02:44 | Inpatient (IN) | payer MEDICARE, MEDICAID ==
[~2023-11-16] VITALS: Ht 172.7 cm; Wt 60.5 kg
[~2023-11-16 02:44] MED LIST changes: -ASPI81TA26 PO; -GASTROGRAFIN SOLUTION 30ML As Ordered ONE; -ISOVUE-370 76% 100ML VIAL As Ordered ONE
[2023-11-16] MEDS: ONDANSETRON 4MG 2ML VIAL IV ONE (03:50)
[2023-11-16] MEDS: MORPHINE 4 MG/ML 1ML VIAL IV PRN (03:51)
[2023-11-16 03:54] LABS: BASO % 0.5 % (0.0-1.0); EOS % 0.4 % (0.0-3.0); HEMATOCRIT 37.2 % (42.0-52.0); HEMOGLOBIN 12.3 g/dl (13.5-17.5); LYMPH # 1.3 10^3/uL (1.5-5.0); MEAN CORPUSCULAR HGB CONC 33.1 g/dl (32.0-36.5); MEAN CORPUSCULAR VOLUME 93.7 fl (80.0-96.0); MONO # 0.5 10^3/uL (0.0-0.8); MONO % 6.2 % (2.0-8.0); NEUTROPHILS # 6.2 10^3/uL (1.5-8.5); NEUTROPHILS % 76.7 % (36.0-66.0); PLATELET COUNT, AUTOMATED 201 10^3/uL (150-450); RED BLOOD COUNT 3.97 10^6/uL (4.30-6.10); WHITE BLOOD COUNT 8.1 10^3/uL (4.0-10.0)
[2023-11-16 04:16] LABS: BILIRUBIN,DIRECT 0.2 MG/DL (<0.4); BILIRUBIN,TOTAL 0.8 MG/DL (0.3-1.2); CALCIUM LEVEL 9.8 MG/DL (8.3-10.6); CREATININE FOR GFR 1.65 MG/DL (0.70-1.30); TOTAL PROTEIN 7.3 G/DL (5.7-8.2)
[2023-11-16] MEDS ORDERED: ISOVUE-370 76% 100ML VIAL As Ordered ONE (04:23)
[2023-11-16] MEDS: NS 1,000 ML IV ONE (04:37)
[2023-11-16] MEDS: SUCRALFATE SUSP 1GM/10ML UD PO ONE (06:32)
[2023-11-16] MEDS: PANTOPRAZOLE 40MG TAB (PROTONIX) PO ONE (06:32)
[2023-11-16] MEDS: NORCO, ANEXSIA 5/325MG TABLET (HYDROcodone/ACETAMINOPHEN) PO ONE ×2 (06:33→11:22)
[2023-11-16] MEDS: CREON-12 CAPSULE PO ONE (06:38)
[2023-11-16] MEDS: HALOPERIDOL LACTATE 5MG/ML VIAL IV ONE (08:29)
[2023-11-16] MEDS: METOPROLOL TART 25 MG TABLET PO ONE (08:30)
[2023-11-16] MEDS: LOSARTAN 50MG TABLET PO ONE (08:30)
[2023-11-16] MEDS: COSOPT OCUMETER PLUS 10ML (DORZOLAMIDE/TIMOLOL) OU SCH (09:00)
[2023-11-16] MEDS ORDERED: ASPI81TA26 PO (11:49)
[2023-11-16] MEDS ORDERED: GABA600T4 PO (11:49)
[2023-11-16] MEDS ORDERED: HOME MED LIST COMPLETE! XX SCH (11:50)
[2023-11-16] MEDS ORDERED: MOM 30ML SUSPENSION UDC PO PRN (11:50)
[2023-11-16] MEDS ORDERED: ACETAMINOPHEN TAB 650MG DOSE (2X325MG) PO PRN (11:50)
[2023-11-16] MEDS ORDERED: MORPHINE 2 MG/ML 1ML VIAL IV PRN (12:30)
[2023-11-16] MEDS ORDERED: ONDANSETRON 4MG 2ML VIAL IV PRN (13:00)
[2023-11-16] MEDS: NS 1,000 ML IV SCH (13:19)
[2023-11-16] MEDS: hydrALAZINE 20MG/ML 1ML VIAL IV SCH (13:19)
[2023-11-16] MEDS: DOCUSATE SODIUM 100MG CAPSULE PO SCH (13:21)
[2023-11-16] MEDS: HEPARIN SOD (PORCINE) 5000UNITS/ML 1ML VIAL/SYRINGE SC SCH (13:21)
[2023-11-16] MEDS: HYDROMORPHONE HCL 0.5 MG/ 0.5 ML SYRINGE IV PRN ×2 (13:22→20:28)
[2023-11-16 16:45] VITALS: BP 158/56; TEMP 96.7; O2SAT 96
[2023-11-16 20:21] VITALS: BP 133/77; TEMP 98; O2SAT 100
[2023-11-16] MEDS: METOPROLOL TART 25 MG TABLET PO SCH (20:27)
[2023-11-16] MEDS: SUCRALFATE 1 GM TAB PO SCH (20:28)
[2023-11-16 23:51] VITALS: BP 112/56; TEMP 98.5; O2SAT 99
[2023-11-17 02:26] VITALS: BP 116/78
[2023-11-17 04:11] VITALS: BP 115/58; TEMP 98.8; O2SAT 99
[2023-11-17 05:08] LABS: BASO % 0.5 % (0.0-1.0); EOS % 0.2 % (0.0-3.0); HEMATOCRIT 33.5 % (42.0-52.0); HEMOGLOBIN 11.2 g/dl (13.5-17.5); LYMPH # 2.3 10^3/uL (1.5-5.0); LYMPH % 27.5 % (24.0-44.0); MEAN CORPUSCULAR HEMOGLOBIN 31.1 pg (27.0-33.0); MEAN CORPUSCULAR HGB CONC 33.4 g/dl (32.0-36.5); MEAN CORPUSCULAR VOLUME 93.1 fl (80.0-96.0); MONO # 0.7 10^3/uL (0.0-0.8); NEUTROPHILS # 5.2 10^3/uL (1.5-8.5); NEUTROPHILS % 63.6 % (36.0-66.0); PLATELET COUNT, AUTOMATED 157 10^3/uL (150-450); WHITE BLOOD COUNT 8.2 10^3/uL (4.0-10.0)
[2023-11-17 05:48] LABS: ALBUMIN 3.2 G/DL (3.2-5.2); ALKALINE PHOSPHATASE 59 U/L (46-116); ALT/SGPT 17 U/L (7.0-40); AST/SGOT 15 U/L (<34); BILIRUBIN,TOTAL 0.8 MG/DL (0.3-1.2); BLOOD UREA NITROGEN 21 MG/DL (9-23); CALCIUM LEVEL 8.8 MG/DL (8.3-10.6); CARBON DIOXIDE LEVEL 25 MMOL/L (20-31); CHLORIDE LEVEL 108 MMOL/L (98-107); CHOLESTEROL LEVEL 177 MG/DL (<200); CHOLESTEROL RISK RATIO 3.71 (<5); CREATININE FOR GFR 1.38 MG/DL (0.70-1.30); GLOMERULAR FILTRATION RATE > 60.0 (>42); GLUCOSE, FASTING 100 MG/DL (74-106); HDL CHOLESTEROL 47.6 MG/DL (>40); LDL CHOLESTEROL 116.6 MG/DL (<100); NON-HDL-C 129.4 MG/DL; POTASSIUM SERUM 3.5 MMOL/L (3.5-5.1); SODIUM LEVEL 141 MMOL/L (136-145); TOTAL PROTEIN 6.1 G/DL (5.7-8.2); TRIGLYCERIDES LEVEL 64 MG/DL (<150)
[2023-11-17] MEDS: POTASSIUM CHLORIDE 10MEQ SR TABLET PO ONE (06:44)
[2023-11-17 08:00] VITALS: BP 132/73; TEMP 98.3; O2SAT 99
[2023-11-17] MEDS ORDERED: hydrALAZINE 20MG/ML 1ML VIAL IV PRN (08:20)
[2023-11-17] MEDS ORDERED: PANTOPRAZOLE 40MG TAB (PROTONIX) PO SCH (09:00)
[2023-11-17] MEDS: HYDROMORPHONE HCL 0.5 MG/ 0.5 ML SYRINGE IV PRN (09:28)
[2023-11-17] MEDS: ASPIRIN 81MG ENTERIC TABLET PO SCH (09:59)
[2023-11-17] MEDS: PANTOPRAZOLE 40MG VIAL IV SCH (10:00)
[2023-11-17 10:01] VITALS: BP 115/58
[2023-11-17 11:45] VITALS: BP 125/65; TEMP 97.6; O2SAT 99
[2023-11-17] MEDS: PERCOCET 5MG/325MG TAB PO SCH (12:34)
[2023-11-17] MEDS: SUCRALFATE 1 GM TAB PO SCH (12:35)
[2023-11-17 15:38] VITALS: BP 133/62; TEMP 97.5; O2SAT 95
[2023-11-17] MEDS ORDERED: PERCOCET PO (15:56)
== END 2023-11-17 17:35 | disposition home or self-care (01) | DRG 440 ==
LOC: M ED 02:44 → M ED INP 11:23 → M PCU 16:31
PROVIDERS: ADMIT Student in an Organized Health Care Education/Training Program; ATTEND Student in an Organized Health Care Education/Training Program
DX: K86.1 Other chronic pancreatitis (principal); F17.210 Nicotine dependence, cigarettes, uncomplicated; N18.30 Chronic kidney disease, stage 3 unspecified; G89.29 Other chronic pain; K21.9 Gastro-esophageal reflux disease without esophagitis; I12.9 Hypertensive chronic kidney disease with stage 1 through stage 4 chronic kidney disease, or unspecified chronic kidney disease; H40.9 Unspecified glaucoma; I16.0 Hypertensive urgency; Z79.82 Long term (current) use of aspirin; Z90.49 Acquired absence of other specified parts of digestive tract; Z79.899 Other long term (current) drug therapy

== ENCOUNTER → 2023-11-22 | Outpatient (CLI) | payer MEDICARE, MEDICAID ==
[~2023-11-22] MED LIST changes: +ASPI81TA26 PO; +PERCOCET PO
== END ==
LOC: M RAD 13:38
PROVIDERS: ATTEND Student in an Organized Health Care Education/Training Program
DX: Z12.2 Encounter for screening for malignant neoplasm of respiratory organs (principal); F17.210 Nicotine dependence, cigarettes, uncomplicated

== ENCOUNTER 2023-12-19 07:59 | Emergency (ER) | payer MEDICARE, MEDICAID ==
[~2023-12-19] VITALS: Ht 175.3 cm; Wt 58.9 kg
[2023-12-19] MEDS ORDERED: CREO3600 (08:19)
[2023-12-19 09:13] LABS: BASO # 0.1 10^3/uL (0.0-0.2); BASO % 0.9 % (0.0-1.0); EOS # 0.1 10^3/uL (0.0-0.5); EOS % 1.4 % (0.0-3.0); HEMATOCRIT 37.5 % (42.0-52.0); HEMOGLOBIN 12.4 g/dl (13.5-17.5); LYMPH # 1.4 10^3/uL (1.5-5.0); LYMPH % 24.5 % (24.0-44.0); MEAN CORPUSCULAR HEMOGLOBIN 32.1 pg (27.0-33.0); MEAN CORPUSCULAR HGB CONC 33.1 g/dl (32.0-36.5); MEAN CORPUSCULAR VOLUME 97.2 fl (80.0-96.0); MONO # 0.4 10^3/uL (0.0-0.8); MONO % 6.8 % (2.0-8.0); NEUTROPHILS # 3.9 10^3/uL (1.5-8.5); NEUTROPHILS % 66.2 % (36.0-66.0); PLATELET COUNT, AUTOMATED 170 10^3/uL (150-450); RED BLOOD COUNT 3.86 10^6/uL (4.30-6.10); WHITE BLOOD COUNT 5.9 10^3/uL (4.0-10.0)
[2023-12-19 09:41] LABS: LIPASE 37 U/L (12-53)
[2023-12-19 09:43] LABS: ALKALINE PHOSPHATASE 62 U/L (46-116); ALT/SGPT 20 U/L (7.0-40); AST/SGOT 18 U/L (<34); BILIRUBIN,DIRECT 0.3 MG/DL (<0.4); BILIRUBIN,TOTAL 0.9 MG/DL (0.3-1.2); BLOOD UREA NITROGEN 14 MG/DL (9-23); CALCIUM LEVEL 9.2 MG/DL (8.3-10.6); CARBON DIOXIDE LEVEL 27 MMOL/L (20-31); CHLORIDE LEVEL 105 MMOL/L (98-107); CREATININE FOR GFR 1.33 MG/DL (0.70-1.30); GLOMERULAR FILTRATION RATE > 60.0 (>42); GLUCOSE, FASTING 99 MG/DL (74-106); POTASSIUM SERUM 4.1 MMOL/L (3.5-5.1); SODIUM LEVEL 138 MMOL/L (136-145); TOTAL PROTEIN 7.1 G/DL (5.7-8.2)
[2023-12-19] MEDS: ONDANSETRON 4MG 2ML VIAL IV ONE (11:04)
[2023-12-19] MEDS: fentaNYL 100 MCG/2 ML INJECTION IV ONE (11:04)
[2023-12-19] MEDS: NS 1,000 ML IV ONE (11:04)
[2023-12-19] MEDS: PERCOCET 5MG/325MG TAB PO ONE (12:07)
[2023-12-19] MEDS ORDERED: PERC5TAB12 PO (12:08)
[2023-12-19] MEDS ORDERED: ONDA-282 PO (12:08)
[2023-12-19 12:18] VITALS: BP 201/96; TEMP 97.8; O2SAT 98
== END 2023-12-19 12:28 | disposition home or self-care (01) ==
LOC: M ED 07:59
DX: K86.1 Other chronic pancreatitis (principal); R10.13 Epigastric pain; I10 Essential (primary) hypertension; K27.9 Peptic ulcer, site unspecified, unspecified as acute or chronic, without hemorrhage or perforation; E78.5 Hyperlipidemia, unspecified; F17.200 Nicotine dependence, unspecified, uncomplicated; Z79.82 Long term (current) use of aspirin; Z79.811 Long term (current) use of aromatase inhibitors; Z79.83 Long term (current) use of bisphosphonates; Z79.899 Other long term (current) drug therapy
CPT/HCPCS: 80048; 80076; 83690; 85025; 96361; 96374; 99284; J2405; J3010

== ENCOUNTER → 2024-03-06 | Outpatient (CLI) | payer MEDICARE, MEDICAID ==
[~2024-03-06] MED LIST changes: +GABA-1490 PO; -GABA600T4 PO; +PERC5TAB12 PO
[2024-03-06 13:02] LABS: APPEARANCE, URINE HAZY (CLEAR); BACTERIA, URINE AUTO NEGATIVE (NEGATIVE); BILIRUBIN, URINE AUTO NEGATIVE (NEGATIVE); BLOOD, URINE BLOOD NEGATIVE (NEGATIVE); CALCIUM OXALATE CRYSTALS LARGE; COLOR, URINE YELLOW (YELLOW); GLUCOSE, URINE (UA) AUTO NEGATIVE (NEGATIVE); KETONE, URINE AUTO NEGATIVE (NEGATIVE); LEUKOCYTE ESTERASE, URINE AUTO NEGATIVE (NEGATIVE); MUCUS, URINE SMALL (NEGATIVE); NITRITE, URINE AUTO NEGATIVE (NEGATIVE); PROTEIN, URINE AUTO NEGATIVE (NEGATIVE); RBC, URINE AUTO 4 /HPF (0-3); SPECIFIC GRAVITY URINE AUTO 1.021 (1.002-1.035); SQUAMOUS EPITHELIAL CELL UR AU 0 /HPF (0-6); UROBILINOGEN, URINE AUTO 0.2 mg/dL (0.0-2.0); WBC, URINE AUTO 3 /HPF (0-3)
[2024-03-06 13:17] LABS: ALBUMIN 3.6 G/DL (3.2-5.2); ALKALINE PHOSPHATASE 71 U/L (46-116); ALT/SGPT 46 U/L (7.0-40); AST/SGOT 79 U/L (<34); BILIRUBIN,TOTAL 0.7 MG/DL (0.3-1.2); BLOOD UREA NITROGEN 13 MG/DL (9-23); CALCIUM LEVEL 9.4 MG/DL (8.3-10.6); CARBON DIOXIDE LEVEL 32 MMOL/L (20-31); CHLORIDE LEVEL 103 MMOL/L (98-107); CREATININE FOR GFR 1.39 MG/DL (0.70-1.30); GLOMERULAR FILTRATION RATE > 60.0 (>42); GLUCOSE, FASTING 108 MG/DL (74-106); POTASSIUM SERUM 4.9 MMOL/L (3.5-5.1); PSA SCREENING 0.36 NG/ML (< 4.00); SODIUM LEVEL 136 MMOL/L (136-145); TOTAL PROTEIN 6.9 G/DL (5.7-8.2)
== END ==
LOC: M PLALAB 10:23
PROVIDERS: ATTEND Student in an Organized Health Care Education/Training Program
DX: K86.1 Other chronic pancreatitis (principal); R39.16 Straining to void
CPT/HCPCS: 36415; 80053; 81001; G0103

== ENCOUNTER → 2024-04-04 | Outpatient (REF) | payer MEDICARE, MEDICAID | LOC: M SFHCPLAZ 23:36 | DX: I1A.0 Resistant hypertension (principal); K86.1 Other chronic pancreatitis; F19.90 Other psychoactive substance use, unspecified, uncomplicated; Z13.220 Encounter for screening for lipoid disorders; Z53.9 Procedure and treatment not carried out, unspecified reason ==

== ENCOUNTER → 2024-04-04 | Outpatient (CLI) | payer MEDICARE, MEDICAID ==
[~2024-04-04] MED LIST changes: +GASTROGRAFIN SOLUTION 30ML As Ordered ONE; +ISOVUE-370 76% 100ML VIAL As Ordered ONE
== END ==
LOC: M RAD 12:45
PROVIDERS: ATTEND Nurse Practitioner Family
DX: K86.0 Alcohol-induced chronic pancreatitis (principal)
CPT/HCPCS: 74177; Q9963; Q9967

== ENCOUNTER → 2024-04-06 | Outpatient (CLI) | payer MEDICARE, MEDICAID ==
[~2024-04-06] MED LIST changes: -GASTROGRAFIN SOLUTION 30ML As Ordered ONE; -ISOVUE-370 76% 100ML VIAL As Ordered ONE
[2024-04-06 18:26] LABS: BASO # 0.1 10^3/uL (0.0-0.2); BASO % 0.7 % (0.0-1.0); EOS # 0.2 10^3/uL (0.0-0.5); EOS % 2.2 % (0.0-3.0); HEMATOCRIT 39.5 % (42.0-52.0); HEMOGLOBIN 12.7 g/dl (13.5-17.5); LYMPH # 2.1 10^3/uL (1.5-5.0); LYMPH % 28.8 % (24.0-44.0); MEAN CORPUSCULAR HEMOGLOBIN 31.1 pg (27.0-33.0); MEAN CORPUSCULAR HGB CONC 32.2 g/dl (32.0-36.5); MEAN CORPUSCULAR VOLUME 96.6 fl (80.0-96.0); MONO # 0.7 10^3/uL (0.0-0.8); MONO % 9.4 % (2.0-8.0); NEUTROPHILS # 4.2 10^3/uL (1.5-8.5); NEUTROPHILS % 58.8 % (36.0-66.0); PLATELET COUNT, AUTOMATED 135 10^3/uL (150-450); RED BLOOD COUNT 4.09 10^6/uL (4.30-6.10); WHITE BLOOD COUNT 7.2 10^3/uL (4.0-10.0)
[2024-04-06 18:41] LABS: HEMOGLOBIN A1c 4.7 % (4.0-6.0)
[2024-04-06 18:56] LABS: ALBUMIN 3.8 G/DL (3.2-5.2); ALKALINE PHOSPHATASE 71 U/L (40-129); ALT/SGPT 12 U/L (7.0-40); AST/SGOT 11 U/L (<34); BILIRUBIN,TOTAL 0.3 MG/DL (0.3-1.2); BLOOD UREA NITROGEN 14 MG/DL (9-23); CALCIUM LEVEL 9.5 MG/DL (8.3-10.6); CARBON DIOXIDE LEVEL 29 MMOL/L (20-31); CHLORIDE LEVEL 109 MMOL/L (98-107); CHOLESTEROL LEVEL 188 MG/DL (<200); CHOLESTEROL RISK RATIO 4.07 (<5); CREATININE FOR GFR 1.25 MG/DL (0.70-1.30); GLOMERULAR FILTRATION RATE > 60.0 (>42); GLUCOSE, FASTING 76 MG/DL (74-106); HDL CHOLESTEROL 46.1 MG/DL (>40); LDL CHOLESTEROL 125.1 MG/DL (<100); NON-HDL-C 141.9 MG/DL; POTASSIUM SERUM 3.8 MMOL/L (3.5-5.1); SODIUM LEVEL 143 MMOL/L (136-145); TRIGLYCERIDES LEVEL 84 MG/DL (<150)
[2024-04-06 20:07] LABS: AMPHETAMINES URINE REFLEX NEGATIVE (NEGATIVE); BARBITURATES URINE REFLEX NEGATIVE (NEGATIVE); BENZODIAZEPINES URINE REFLEX NEGATIVE (NEGATIVE); COCAINE METABOLITE URINE REFLE NEGATIVE (NEGATIVE)
[2024-04-06 20:08] LABS: CANNABINOIDS URINE REFLEX NEGATIVE (NEGATIVE); METHADONE URINE REFLEX NEGATIVE (NEGATIVE); OPIATES URINE REFLEX NEGATIVE (NEGATIVE); PHENCYCLIDINE URINE REFLEX NEGATIVE (NEGATIVE)
[2024-04-08 05:08] LABS: C-PEPTIDE 2.24 ng/mL (0.80-3.85)
[2024-04-09 08:58] LABS: INSULIN TOTAL2 4.8 uIU/mL (<=18.4)
== END ==
LOC: M PLALAB 14:34
DX: I1A.0 Resistant hypertension (principal); K86.1 Other chronic pancreatitis; F19.90 Other psychoactive substance use, unspecified, uncomplicated; Z13.220 Encounter for screening for lipoid disorders; Z79.899 Other long term (current) drug therapy

== ENCOUNTER → 2024-05-23 | Outpatient (CLI) | payer MEDICARE, MEDICAID ==
[~2024-05-23] MED LIST changes: -CYCL5TAB PO; +CYCL5TAB4 PO; +PROHANCE 279.3MG/ML 15ML VIAL As Ordered ONE
== END ==
LOC: M RAD 14:51
PROVIDERS: ATTEND Nurse Practitioner Family
DX: K86.0 Alcohol-induced chronic pancreatitis (principal)
CPT/HCPCS: 74183; A9576

== ENCOUNTER 2024-08-06 11:08 | Emergency (ER) | payer MEDICARE, MEDICAID ==
[~2024-08-06] VITALS: Ht 175.3 cm; Wt 62.0 kg
[~2024-08-06 11:08] MED LIST changes: -PROHANCE 279.3MG/ML 15ML VIAL As Ordered ONE
[2024-08-06] MEDS ORDERED: TAMS1CAP17 (11:45)
[2024-08-06] MEDS ORDERED: GABA-1172 (11:45)
[2024-08-06 13:30] LABS: BASO % 0.6 % (0.0-1.0); EOS % 0.5 % (0.0-3.0); HEMATOCRIT 40.6 % (42.0-52.0); HEMOGLOBIN 13.2 g/dl (13.5-17.5); LYMPH # 1.7 10^3/uL (1.5-5.0); LYMPH % 25.6 % (24.0-44.0); MEAN CORPUSCULAR HEMOGLOBIN 30.1 pg (27.0-33.0); MEAN CORPUSCULAR HGB CONC 32.5 g/dl (32.0-36.5); MEAN CORPUSCULAR VOLUME 92.5 fl (80.0-96.0); MONO # 0.4 10^3/uL (0.0-0.8); MONO % 6.5 % (2.0-8.0); NEUTROPHILS # 4.3 10^3/uL (1.5-8.5); NEUTROPHILS % 66.5 % (36.0-66.0); PLATELET COUNT, AUTOMATED 178 10^3/uL (150-450); RED BLOOD COUNT 4.39 10^6/uL (4.30-6.10); WHITE BLOOD COUNT 6.4 10^3/uL (4.0-10.0)
[2024-08-06] MEDS: ACETAMINOPHEN *IV* 1,000 MG in IV 1 EA IV ONE (13:40)
[2024-08-06 13:49] LABS: LIPASE 25 U/L (12-53)
[2024-08-06 13:51] LABS: ALBUMIN 3.9 G/DL (3.2-5.2); ALKALINE PHOSPHATASE 76 U/L (40-129); ALT/SGPT 12 U/L (7.0-40); AMYLASE 90 U/L (30-118); AST/SGOT 19 U/L (<34); BILIRUBIN,DIRECT 0.3 MG/DL (<0.4); BILIRUBIN,TOTAL 0.8 MG/DL (0.3-1.2); BLOOD UREA NITROGEN 21 MG/DL (9-23); CALCIUM LEVEL 9.2 MG/DL (8.3-10.6); CARBON DIOXIDE LEVEL 26 MMOL/L (20-31); CHLORIDE LEVEL 104 MMOL/L (98-107); CREATININE FOR GFR 1.37 MG/DL (0.70-1.30); GLOMERULAR FILTRATION RATE > 60.0 (>42); GLUCOSE, FASTING 101 MG/DL (74-106); POTASSIUM SERUM 4.1 MMOL/L (3.5-5.1); SODIUM LEVEL 140 MMOL/L (136-145); TOTAL PROTEIN 7.2 G/DL (5.7-8.2)
[2024-08-06] MEDS: NS (Normal Saline) 0.9% 1,000 ML IV ONE (15:31)
[2024-08-06] MEDS: PERCOCET 5MG/325MG TAB PO ONE (15:32)
[2024-08-06] MEDS: ONDANSETRON 4MG 2ML VIAL IV ONE (15:32)
[2024-08-06] MEDS ORDERED: PERC5TAB12 PO (17:09)
[2024-08-06 17:20] VITALS: BP 168/81; TEMP 97
[2024-08-06 17:23] VITALS: O2SAT 77
== END 2024-08-06 17:29 | disposition home or self-care (01) ==
LOC: M ED 11:08
DX: K86.1 Other chronic pancreatitis (principal); I10 Essential (primary) hypertension; E78.5 Hyperlipidemia, unspecified; N18.9 Chronic kidney disease, unspecified; K25.9 Gastric ulcer, unspecified as acute or chronic, without hemorrhage or perforation; Z79.811 Long term (current) use of aromatase inhibitors; Z79.2 Long term (current) use of antibiotics; Z79.899 Other long term (current) drug therapy
CPT/HCPCS: 80048; 80076; 82150; 83690; 85025; 96374; 99285; J0131; J2405

== ENCOUNTER → 2024-09-26 | Outpatient (REF) | payer MEDICARE, MEDICAID ==
[~2024-09-26] MED LIST changes: +GABA-1172; +TAMS1CAP17
[2024-09-26 19:07] LABS: APPEARANCE, URINE HAZY (CLEAR); BACTERIA, URINE AUTO NEGATIVE (NEGATIVE); BILIRUBIN, URINE AUTO NEGATIVE (NEGATIVE); BLOOD, URINE BLOOD NEGATIVE (NEGATIVE); CALCIUM OXALATE CRYSTALS SMALL; COLOR, URINE YELLOW (YELLOW); GLUCOSE, URINE (UA) AUTO NEGATIVE (NEGATIVE); KETONE, URINE AUTO NEGATIVE (NEGATIVE); LEUKOCYTE ESTERASE, URINE AUTO NEGATIVE (NEGATIVE); MUCUS, URINE SMALL (NEGATIVE); NITRITE, URINE AUTO NEGATIVE (NEGATIVE); PROTEIN, URINE AUTO NEGATIVE (NEGATIVE); RBC, URINE AUTO 4 /HPF (0-3); SPECIFIC GRAVITY URINE AUTO 1.021 (1.002-1.035); SQUAMOUS EPITHELIAL CELL UR AU 0 /HPF (0-6); UROBILINOGEN, URINE AUTO 0.2 mg/dL (0.0-2.0); WBC, URINE AUTO 1 /HPF (0-3)
== END ==
LOC: M SMT 16:50
PROVIDERS: ATTEND Nurse Practitioner Family
DX: R31.29 Other microscopic hematuria (principal); R82.89 Other abnormal findings on cytological and histological examination of urine

== ENCOUNTER 2024-10-21 07:53 | Emergency (ER) | payer MEDICARE, MEDICAID ==
[~2024-10-21] VITALS: Ht 172.7 cm; Wt 63.7 kg
[~2024-10-21 07:53] MED LIST changes: +AMLO-751 PO; -AMLO10TA PO
[2024-10-21] MEDS ORDERED: METO1TAB33 (08:06)
[2024-10-21 08:29] LABS: BASO # 0.1 10^3/uL (0.0-0.2); BASO % 1.2 % (0.0-1.0); EOS # 0.1 10^3/uL (0.0-0.5); EOS % 1.7 % (0.0-3.0); HEMATOCRIT 41.4 % (42.0-52.0); HEMOGLOBIN 13.2 g/dl (13.5-17.5); LYMPH # 1.8 10^3/uL (1.5-5.0); LYMPH % 21.5 % (24.0-44.0); MEAN CORPUSCULAR HEMOGLOBIN 30.7 pg (27.0-33.0); MEAN CORPUSCULAR HGB CONC 31.9 g/dl (32.0-36.5); MEAN CORPUSCULAR VOLUME 96.3 fl (80.0-96.0); MONO # 0.7 10^3/uL (0.0-0.8); MONO % 7.9 % (2.0-8.0); NEUTROPHILS # 5.5 10^3/uL (1.5-8.5); NEUTROPHILS % 67.5 % (36.0-66.0); PLATELET COUNT, AUTOMATED 143 10^3/uL (150-450); WHITE BLOOD COUNT 8.2 10^3/uL (4.0-10.0)
[2024-10-21 08:34] LABS: ERYTHROCYTE SEDIMENTATION RATE 50 mm/hr (0-20)
[2024-10-21] MEDS: NS (Normal Saline) 0.9% 1,000 ML IV ONE (08:50)
[2024-10-21] MEDS: PERCOCET 5MG/325MG TAB PO ONE (08:51)
[2024-10-21 08:53] LABS: C REACTIVE PROTEIN QUANTITATIV < 0.50 MG/DL (<1.0)
[2024-10-21 09:25] LABS: ALBUMIN 3.9 G/DL (3.2-5.2); ALKALINE PHOSPHATASE 81 U/L (40-129); ALT/SGPT 32 U/L (7.0-40); AST/SGOT 52 U/L (<34); BILIRUBIN,TOTAL 0.6 MG/DL (0.3-1.2); BLOOD UREA NITROGEN 17 MG/DL (9-23); CALCIUM LEVEL 8.9 MG/DL (8.3-10.6); CARBON DIOXIDE LEVEL 31 MMOL/L (20-31); CHLORIDE LEVEL 106 MMOL/L (98-107); CREATININE FOR GFR 1.16 MG/DL (0.70-1.30); GLOMERULAR FILTRATION RATE 66.1 (>42); GLUCOSE, FASTING 110 MG/DL (74-106); LIPASE 53 U/L (12-53); POTASSIUM SERUM 5.1 MMOL/L (3.5-5.1); SODIUM LEVEL 142 MMOL/L (136-145); TOTAL PROTEIN 7.5 G/DL (5.7-8.2)
[2024-10-21] MEDS ORDERED: ISOVUE-370 76% 100ML VIAL As Ordered ONE (09:52)
[2024-10-21] MEDS ORDERED: PERC5TAB12 PO (12:14)
[2024-10-21 12:30] VITALS: BP 180/100; TEMP 97.5; O2SAT 100
== END 2024-10-21 12:47 | disposition home or self-care (01) ==
LOC: M ED 07:53
DX: K86.1 Other chronic pancreatitis (principal); J43.2 Centrilobular emphysema; I10 Essential (primary) hypertension; E78.5 Hyperlipidemia, unspecified; Z79.83 Long term (current) use of bisphosphonates; Z79.899 Other long term (current) drug therapy
CPT/HCPCS: 74177; 80053; 83605; 83690; 85025; 85652; 86140; 96360; 96361; 99284; Q9967

== ENCOUNTER → 2025-05-20 | Outpatient (CLI) | payer MEDICARE, MEDICAID ==
[~2025-05-20] MED LIST changes: +METO1TAB33
== END ==
LOC: M PLAIMG 13:51
PROVIDERS: ATTEND Nurse Practitioner Family
DX: K86.1 Other chronic pancreatitis (principal); K57.30 Diverticulosis of large intestine without perforation or abscess without bleeding; Z90.49 Acquired absence of other specified parts of digestive tract

== ENCOUNTER 2025-05-30 11:42 | Observation (INO) | payer MEDICARE, MEDICAID ==
[~2025-05-30] VITALS: Ht 172.7 cm; Wt 53.1 kg
[~2025-05-30 11:42] MED LIST changes: +CREO3600 PO
[2025-05-30 12:15] LABS: BASO # 0.0 10^3/uL (0.0-0.2); BASO % 0.7 % (0.0-1.0); EOS # 0.0 10^3/uL (0.0-0.5); EOS % 0.7 % (0.0-3.0); LYMPH # 1.2 10^3/uL (1.5-5.0); LYMPH % 19.6 % (24.0-44.0); MONO # 0.5 10^3/uL (0.0-0.8); MONO % 8.0 % (2.0-8.0); NEUTROPHILS # 4.2 10^3/uL (1.5-8.5); NEUTROPHILS % 70.7 % (36.0-66.0); PLATELET COUNT, AUTOMATED 340 10^3/uL (150-450)
[2025-05-30 12:38] LABS: ALT/SGPT 21.0 U/L (7.0-40); AST/SGOT 23.0 U/L (<34); CALCIUM LEVEL 8.7 MG/DL (8.3-10.6); CARBON DIOXIDE LEVEL 27.0 MMOL/L (20-31); CHLORIDE LEVEL 101.0 MMOL/L (98-107); CREATININE FOR GFR 1.57 MG/DL (0.70-1.30); GLOMERULAR FILTRATION RATE 45.7 (>42); POTASSIUM SERUM 3.9 MMOL/L (3.5-5.1); SODIUM LEVEL 139.0 MMOL/L (136-145)
[2025-05-30 14:28] LABS: CK-MB VALUE MASS 2.1 NG/ML (<3.6)
[2025-05-30] MEDS: NS (Normal Saline) 0.9% 1,000 ML IV SCH (14:28)
[2025-05-30] MEDS: MORPHINE 4 MG/ML 1 ML VIAL IV ONE (14:28)
[2025-05-30 14:30] LABS: CPK CREATINE PHOSPHOKINASE 55.0 U/L (46-171); MB/CK RELATIVE INDEX 3.81 (< OR =4)
[2025-05-30 15:13] LABS: CK-MB VALUE MASS 1.9 NG/ML (<3.6); CPK CREATINE PHOSPHOKINASE 80.0 U/L (46-171); MB/CK RELATIVE INDEX 2.37 (< OR =4)
[2025-05-30] MEDS: GASTROGRAFIN SOLUTION 30ML PO SCH (15:40)
[2025-05-30 16:13] LABS: CK-MB VALUE MASS 2.1 NG/ML (<3.6)
[2025-05-30 16:15] LABS: CPK CREATINE PHOSPHOKINASE 58.0 U/L (46-171); MB/CK RELATIVE INDEX 3.62 (< OR =4)
[2025-05-30] MEDS: KETOROLAC 30 MG/ML 1 ML VIAL IV ONE (16:16)
[2025-05-30] MEDS ORDERED: ISOVUE-370 76% 100 ML VIAL As Ordered ONE (16:54)
[2025-05-30] MEDS ORDERED: GI COCKTAIL 50 ML BTL(HYOSCYAMINE/MAALOX/LIDOCAINE VISCOUS)(1:3:1) PO ONE (17:25)
[2025-05-30] MEDS: PANTOPRAZOLE 40MG VIAL IV ONE (17:34)
[2025-05-30] MEDS: MAALOX 30 ML SUSP *UDC PO ONE (18:41)
[2025-05-30] MEDS: HYOSCYAMINE SULFATE 0.125 MG SUBL TABLET SL ONE (18:42)
[2025-05-30] MEDS: LIDOCAINE VISCOUS 2% SOLN 15 ML UDC PO ONE (18:42)
[2025-05-30] MEDS ORDERED: NIFE1TAB51 PO (21:24)
[2025-05-30] MEDS ORDERED: ONDA-282 PO (21:24)
[2025-05-30] MEDS ORDERED: GABA-284 PO (21:25)
[2025-05-30] MEDS ORDERED: HYDR-4571 PO (21:31)
[2025-05-30] MEDS ORDERED: OXYC-517 PO (21:31)
[2025-05-30] MEDS ORDERED: MORPHINE 2 MG/ML 1 ML VIAL IV PRN (21:35)
[2025-05-30] MEDS ORDERED: HOME MED LIST COMPLETE! XX SCH (21:35)
[2025-05-30] MEDS ORDERED: GABAPENTIN 400 MG CAP PO PRN (21:45)
[2025-05-30] MEDS: DICYCLOMINE 10 MG CAP PO SCH (23:11)
[2025-05-31] MEDS: **hydrALAZINE** 10 MG TAB PO SCH (00:38)
[2025-05-31] MEDS: MORPHINE 2 MG/ML 1 ML VIAL IV PRN (01:50)
[2025-05-31] MEDS: NS (Normal Saline) 0.9% 1,000 ML IV SCH (01:50)
[2025-05-31 07:13] LABS: PLATELET COUNT, AUTOMATED 271 10^3/uL (150-450)
[2025-05-31 07:33] LABS: ALT/SGPT 17.0 U/L (7.0-40); AST/SGOT 23.0 U/L (<34); CALCIUM LEVEL 8.4 MG/DL (8.3-10.6); CARBON DIOXIDE LEVEL 25.0 MMOL/L (20-31); CHLORIDE LEVEL 102.0 MMOL/L (98-107); CREATININE FOR GFR 1.39 MG/DL (0.70-1.30); GLOMERULAR FILTRATION RATE 52.9 (>42); MAGNESIUM LEVEL 2.0 MG/DL (1.8-2.4); POTASSIUM SERUM 4.1 MMOL/L (3.5-5.1); SODIUM LEVEL 137.0 MMOL/L (136-145)
[2025-05-31 09:00] VITALS: BP 168/82; TEMP 99.1; O2SAT 100
[2025-05-31] MEDS: HEPARIN SOD 5000 UNITS/ML 1 ML VIAL/SYRINGE SC SCH (09:00)
[2025-05-31] MEDS: NS (Normal Saline) 0.9% 1,000 ML IV ONE (09:10)
[2025-05-31] MEDS: PANTOPRAZOLE 40MG TAB PO SCH (09:18)
[2025-05-31] MEDS: GABAPENTIN 400 MG CAP PO SCH (11:09)
[2025-05-31] MEDS: LIDOCAINE 5% PATCH TD SCH (11:10)
[2025-05-31 12:00] VITALS: BP 172/79; TEMP 98.5; O2SAT 92
[2025-05-31] MEDS: SUCRALFATE SUSP 1GM/10ML UD PO SCH (12:00)
[2025-05-31] MEDS: DORZOLAMIDE/TIMOLOL 10 ML OPHTHALMIC SOLN OU SCH (12:42)
[2025-05-31] MEDS: CREON-24 CAPSULE (PANCRELIPASE) PO SCH (12:43)
[2025-05-31] MEDS: NIFEdipine 30 MG XL TAB PO SCH (12:44)
[2025-05-31 18:15] VITALS: BP 143/82; TEMP 98.3; O2SAT 95
[2025-05-31 19:42] VITALS: BP 97/55; TEMP 98.7; O2SAT 99
[2025-05-31] MEDS: PANTOPRAZOLE 40MG VIAL IV SCH (21:15)
[2025-06-01 04:21] VITALS: BP 112/65; TEMP 98.3; O2SAT 100
[2025-06-01 07:21] LABS: BASO # 0.1 10^3/uL (0.0-0.2); BASO % 1.1 % (0.0-1.0); EOS # 0.2 10^3/uL (0.0-0.5); EOS % 3.7 % (0.0-3.0); LYMPH # 1.8 10^3/uL (1.5-5.0); LYMPH % 33.0 % (24.0-44.0); MONO # 0.4 10^3/uL (0.0-0.8); MONO % 7.3 % (2.0-8.0); NEUTROPHILS # 2.9 10^3/uL (1.5-8.5); NEUTROPHILS % 54.3 % (36.0-66.0); PLATELET COUNT, AUTOMATED 250 10^3/uL (150-450)
[2025-06-01 07:45] LABS: CALCIUM LEVEL 7.8 MG/DL (8.3-10.6); CARBON DIOXIDE LEVEL 26.0 MMOL/L (20-31); CHLORIDE LEVEL 106.0 MMOL/L (98-107); CREATININE FOR GFR 1.23 MG/DL (0.70-1.30); GLOMERULAR FILTRATION RATE 61.2 (>42); POTASSIUM SERUM 3.8 MMOL/L (3.5-5.1); SODIUM LEVEL 139.0 MMOL/L (136-145)
[2025-06-01] MEDS: SUCRALFATE 1 GM TAB PO SCH (08:26)
[2025-06-01 12:00] VITALS: BP 115/63; TEMP 98.4; O2SAT 100
[2025-06-01 17:56] VITALS: BP 133/60; TEMP 98.1; O2SAT 97
[2025-06-01] MEDS: MORPHINE 2 MG/ML 1 ML VIAL IV PRN (18:48)
[2025-06-01 21:09] VITALS: BP 112/54; TEMP 99.8; O2SAT 99
[2025-06-02] MEDS: ONDANSETRON 4MG/2ML VIAL IV PRN (02:13)
[2025-06-02 04:00] VITALS: BP 116/57; TEMP 99.7; O2SAT 99
[2025-06-02 08:30] VITALS: BP 138/67
[2025-06-02] MEDS ORDERED: NIFE90TA46 PO (09:54)
[2025-06-02] MEDS ORDERED: PANT40TA29 PO (09:54)
[2025-06-02] MEDS ORDERED: REGL5TAB2 PO (09:55)
[2025-06-02] MEDS ORDERED: GABA-284 PO (09:55)
[2025-06-02] MEDS ORDERED: CARA1TAB6 PO (09:55)
[2025-06-02] MEDS ORDERED: OXYC1TAB23 PO (09:55)
== END 2025-06-02 12:45 | disposition home or self-care (01) ==
LOC: EDBD 11:42 → M ED 11:42 → M ED INP 11:43 → M MS4PR 05-31 09:03 → M MS5PR 06-01 17:55
PROVIDERS: ADMIT Student in an Organized Health Care Education/Training Program; ATTEND Internal Medicine
DX: R10.9 Unspecified abdominal pain (principal); R11.2 Nausea with vomiting, unspecified; K86.1 Other chronic pancreatitis; G89.29 Other chronic pain; N18.2 Chronic kidney disease, stage 2 (mild); N17.9 Acute kidney failure, unspecified; I10 Essential (primary) hypertension; F17.218 Nicotine dependence, cigarettes, with other nicotine-induced disorders; Z79.899 Other long term (current) drug therapy
CPT/HCPCS: 36415; 74177; 80048; 80053; 80076; 82140; 82550; 82553; 83605; 83690; 83735; 84484; 85025; 85027; 93005; 94760; 96361; 96374; 96375; 96376; 99285; G0378; J1885; J2405; J2470; J2765; Q9963; Q9967